=== PATIENT | male | born 1960 | race Caucasian/White ===

== ENCOUNTER 2022-11-21 19:28 | Emergency (ER) | payer MEDICARE, SELFPAY ==
--- NOTE | ~2022-11-21 | CT_ITS ---
EXAMINATION: CT facial bones w con DATE: 11/22/2022 05:12 INDICATION: Dental infection. TECHNIQUE: Computed tomography (CT) of the facial bones and maxillofacial region was performed with 1 00 mL Omnipaque 350 intravenous contrast. Automated exposure control and iterative reconstruction emre hnique were employed. The dose-length product was 579.01 mGy-cm. COMPARISON: None. FINDINGS: There are likely changes of left ocular lens replacement surgery. There is mild mucosal thi ckening in the paranasal sinuses. There is a small left mastoid effusion. There is a carious lesion o f teeth 4. Teeth 14 and 15 are broken with periapical lucencies. There is breech of the buccal cortex of the alveolar process at 14. There are carious lesions of 18. There is left cheek soft tissue swe lling. No drainable abscess. IMPRESSION: 1. Dental disease. 2. Left cheek soft tissue swelling. No drainable abscess. Reviewed, dictated and finalized at location A.
[2022-11-21 19:55] VITALS: BP 158/97; PULSE 100; RESP 18; TEMP 36.4; O2SAT 99
[2022-11-22 03:04] VITALS: BP 164/90; PULSE 109; RESP 16; TEMP 36.8; O2SAT 100
--- NOTE | 2022-11-22 03:53 | ED.DENTAL ---
HPI - Dental/Oral General Chief complaint: Dental/Oral Stated complaint: dental abcess Time Seen by Provider: 11/22/22 03:28 Source: patient Limitations: no limitations History of Present Illness HPI Narrative: Patient presents for dental pain. States 1 year ago he broke a tooth in his left upper molar region and for the past 2-3 months it has been sore in that region intermittently, then 1.5 weeks ago the pain got worse but was still intermittent. Now over the past 5-6 days the pain has been constant. Patient went to an ER in [place] 2-3 days ago and was started on antibiotics with 2 days of clindamycin taken thus far and a dentist appointment scheduled for tomorrow morning. Patient has tried aleve and tylenol for the pain without significant changes. Denies recent injuries, fever, dysphagia, ear pain, eye pain, vision changes, trismus. Admits to a scant amount of overlying facial swelling. Related Data Home Medications Medication Instructions Recorded Confirmed metoprolol tartrate 50 mg tablet 50 mg PO Q12H 03/04/19 11/17/22 nitroglycerin 0.4 mg sublingual 0.4 mg sublingual Q5M PRN 03/04/19 11/17/22 tablet omeprazole 20 mg capsule,delayed 20 mg PO DAILY 05/23/19 11/17/22 release ranolazine 1,000 mg 1,000 mg PO Q12H 05/23/19 11/17/22 tablet,extended release,12 hr (Ranexa) icosapent ethyl 1 gram capsule See Rx Instructions PO DAILY 08/14/19 11/17/22 (Vascepa) insulin aspart U-100 100 unit/mL 50 unit subcut TID 05/18/22 11/17/22 (3 mL) subcutaneous pen (Novolog FlexPen U-100 Insulin aspart) insulin detemir U-100 100 unit/mL 50 unit subcut BID 05/18/22 11/17/22 (3 mL) subcutaneous pen (Levemir FlexTouch U-100 Insulin) Allergies Allergy/AdvReac Type Severity Reaction Status Date / Time cefdinir Allergy Severe Swelling Verified 11/17/22 15:09 Penicillins AdvReac Unknown Hives Verified 11/17/22 15:09 Review of Systems Review of Systems: A 10 system review of systems was completed on the patient and is negative except for what is stated in the HPI. Nursing and ancillary documentation was reviewed. [facility] Past Medical History Medical History Anxiety and depression ASHD (arteriosclerotic heart disease) Nieves's palsy Benign essential hypertension Blurry vision, bilateral Diabetic neuropathy Fatty liver Mixed hyperlipidemia Polyp of colon Type 2 diabetes mellitus with diabetic polyneuropathy, with long-term current use of insulin Family History Family History Father Family history of lymphoma Sibling Family history of coronary artery disease Family history of heart disease in male family member before age 55 Mother Family history of malignant neoplasm of ovary Social History Social History Smoking packs per day: 0.5 Smoking cigarettes per day: 10.0 Years smoked: 45 Smoking pack-years: 22.50 Smoking status: Current some day smoker Tobacco type: cigarettes Second hand tobacco smoke exposure: No Alcohol intake: current Alcohol use details: once in a blue santos a beer Substance use: never Substance use type: does not use Lack of Transportation: No Lack of Food: Never True Current Housing: I Have Housing Concerned About Future Housing: No Difficulty Paying Gas/Electric Bills: No Difficulty Paying for Meds: YES Currently Unemployed: No Education: High School Diploma/GED Difficulty w/ Childcare or Family Care: No Comments At time of signature, I have reviewed and agree with nursing past medical, surgical, social and family history unless otherwise noted. Please see the nursing chart for further information. There is no relevant family history pertinent to the presenting complaint. Exam Narrative: CONST: No acute distress. Well nourished. HENMT: Head is normocephalic and at
[2022-11-22] MEDS: HYDROcodone/acetaminophen (*CRX) 7.5-325 MG TABLET 1 TAB PO (04:05)
[2022-11-22] MEDS: CLINDAMYCIN 450 MG in DEXTROSE 5% IN WATER 50 ML 106 MG IVPB (04:06)
[2022-11-22 04:15] LABS: Basophils Percent Auto 0.4 % (0.2-1.2); Eosinophils Absolute Auto 0.1 K/mm3 (0-0.3); Eosinophils Percent Auto 0.6 % (0-4.4); Hematocrit 52.3 % (42.0-52.0); Hemoglobin 18.3 g/dL (14.0-18.0); Immature Granulocyte Percent A 0.9 % (0-0.5); Lymphocytes Absolute Auto 1.16 K/mm3 (0.9-3.2); Lymphocytes Percent Auto 10.5 % (18.3-44.2); Mean Corpuscular Hemoglobin 29.5 pg (26-34); Mean Corpuscular Volume 84.4 fl (80-100); Mean Platelet Volume 11.7 fl (7.4-10.4); Monocytes Absolute Auto 1.1 K/mm3 (0.1-0.6); Monocytes Percent Auto 9.6 % (2.6-8.5); Neutrophils Absolute Auto 8.7 K/mm3 (1.3-6.7); Platelet Count Result 146 k/mm3 (150-375); Red Cell Distribution Width 13.2 % (11.5-14.5); White Blood Count 11.1 K/mm3 (4.5-10.0)
[2022-11-22 04:28] LABS: Anion Gap 16 mmol/L (8-16); Blood Urea Nitrogen 19 mg/dL (9-20); Calcium 9.3 mg/dL (8.4-10.2); Carbon Dioxide 19 mmol/L (22-30); Chloride 99 mmol/L (98-107); Estimated Glomerular Filt Rate > 60; Glucose 358 mg/dL (65-110); Potassium 4.1 mmol/L (3.4-5.0); Sodium 134 mmol/L (137-145)
[2022-11-22 05:53] VITALS: BP 144/92; PULSE 122; RESP 16; O2SAT 99
[2022-11-22 07:13] VITALS: BP 133/88; PULSE 88; RESP 15; TEMP 37.3; O2SAT 100
== END 2022-11-22 07:15 | disposition home or self-care (01) ==
PROVIDERS: Emergency Provider Student in an Organized Health Care Education/Training Program; PCP Nurse Practitioner Family
DX: K04.7 Periapical abscess without sinus (principal); I25.10 Atherosclerotic heart disease of native coronary artery without angina pectoris; I10 Essential (primary) hypertension; E78.2 Mixed hyperlipidemia; E11.42 Type 2 diabetes mellitus with diabetic polyneuropathy; Z86.010 Personal history of colon polyps; Z79.4 Long term (current) use of insulin; F17.210 Nicotine dependence, cigarettes, uncomplicated; K02.9 Dental caries, unspecified
CPT/HCPCS: 36415; 70487; 80048; 85025; 96365; 99283; 99284; A9270; Q9967

== ENCOUNTER 2024-06-27 00:20 | Day surgery (SDC) | payer MEDICARE, SELFPAY ==
[2024-04-29 15:39] VITALS: BMI 30.7
--- NOTE | 2024-04-29 16:03 | PC.NURSE ---
Spoke with _PATIENT regarding medication PLAVIX. _PATIENT_verbalizes understanding that the last dose is to be taken on _05/01/24_ and the Endoscopist will instruct them when to restart after the procedure.
[2024-06-19 13:23] VITALS: BMI 30.7
--- NOTE | 2024-06-19 13:25 | PC.NURSE ---
Spoke with patient regarding medication Plavix. Patient verbalizes understanding that the last dose is to be taken on 06/22/2024 and the Endoscopist will instruct them when to restart after the procedure.
--- OUTSIDE RECORDS SUMMARY | 2024-06-27 00:23 | XMS_ITS | Clinical Summary ---
Author Organization [facility] Address [address] [place] [address] Care Team Providers Care Environmental Director Name Role Phone Manny Jackson DO Primary Care Provider [phone] Liam Pedraza MD Unavailable Fer Caballero DO Unavailable [phone] Shea Baca MD Unavailable [phone] Dylan Farmer MD Unavailable [phone] Allergies Active Allergy Reactions Criticality Noted Date Comments Penicillins Anaphylaxis High 10/14/2019 Penicillin allergy history form completed, severe risk (occurred in 2019, had to go to urgent care) Medications ALPRAZolam (XANAX) 1 mg tablet Take 1 tablet by mouth 3 (three) times a day as needed. 04/19/19 18 Active VASCEPA 1 gram capsule Take 2 capsules by mouth 2 (two) times a day. 05/10/19 18 Active LEVEMIR FLEXTOUCH 100 unit/mL (3 mL) insulin pen Inject 60 Units under the skin 2 (two) times a day 03/01/20 17 Active metFORMIN (GLUCOPHAGE) 1,000 mg tablet Take 1 tablet by mouth 2 (two) times a day. 05/19/19 18 Active buPROPion XL (WELLBUTRIN XL) 150 mg 24 hr tablet Take 150 mg by mouth daily Active insulin lispro (HumaLOG, ADMELOG) 100 unit/mL injection Inject 55 Units under the skin 3 (three) times a day before meals Adjust with sliding scale Active atorvastatin (LIPITOR) 80 mg tablet Take 80 mg by mouth daily 10/21/19 20 Active escitalopram (LEXAPRO) 20 mg tablet Take 20 mg by mouth daily 10/21/19 20 Active fenofibrate nanocrystallized (TRICOR) 145 mg tablet Take 145 mg by mouth daily 10/06/19 20 Active Accu-Chek Carola Plus test strp strip 10/21/19 20 Active Accu-Chek Softclix Lancets lancets 08/15/19 20 Active omeprazole (PriLOSEC) 20 mg capsule Take 20 mg by mouth daily Active aspirin 81 mg enteric coated tabletIndications:ac [place] myocardial infarction,preventio n of thrombosis Take 81 mg by mouth daily 12/18 hold for now due to bleeding with finger laceration YEISON Peacock NP 12/24 going back on ASA 81mg daily today. YEISON Peacock NP Active cyanocobalamin (Vitamin B-12) 500 mcg tabletIndications:Pr evention of Vitamin B12 Deficiency Take 500 mcg by mouth daily Active pyridoxine (VITAMIN B-6) 100 mg tablet Take 100 mg by mouth daily Active ascorbic acid (ascorbic acid) 500 mg tablet,chewable Take 2,000 mg by mouth daily Active vitamin E (vitamin E) 400 unit capsule Take 400 Units by mouth daily Active zinc 50 mg tablet Take 50 mg by mouth daily Active cholecalciferol (VITAMIN D-3) 400 unit capsule Take 400 Units by mouth daily Active magnesium oxide 500 mg capsule Take 500 mg by mouth daily Active multivitamin capsule Take 1 capsule by mouth daily Active loratadine (CLARITIN) 10 mg tablet Take 10 mg by mouth daily Active metoprolol tartrate (LOPRESSOR) 25 mg immediate release tablet [The details of the medication are not available because there are pending changes by a home health clinician.] 30 tablet 1 12/01/19 20 Active Additional Information Patient taking differently: 25 mgoral 2 times daily,Indications: Atrial Arrhythmia, coronary artery disease, Reported on 12/11/2019 clopidogreL (PLAVIX) 75 mg tablet [The details of the medication are not available because there are pending changes by a home health clinician.] 30 tablet 1 12/02/19 20 Active Additional Information Patient taking differently:75 mg oral Daily, 12/18 hold for now due to bleeding with finger laceration. YEISON Peacock NP12/24 going back on Plavix 75mg daily YEISON Peacock NP, Indications: myocardial infarction prevention, Reported on 12/26/2019 docusate sodium (COLACE) 100 mg capsuleIndications:c onstipation Take 1 capsule (100 mg total) by mouth 2 (two) times a day 12/01/19 20 Active oxyCODONE-acetaminop hen (PERCOCET) 5-325 mg per tabletIndications:Pa in Take 1 tablet by mouth every 4 (four) hours as needed for pain 0 12/01/19 20 Active polyethylene glycol (MIRALAX) 17 gram packetIndications:co nstipation Take 1 packet (17 g total) by mouth daily 12/02/19 20 Active vitamin E (vitamin E) 400 unit capsuleIndications:V itamin E Deficiency Take 400 Units by mouth daily. Indications: deficiency of vitamin E Active Active Problems Problem Noted Date Diagnosed Date Coronary artery disease invo lving [place] heart without angina pectoris 10/14/2019 Overview (10/14/2019): Added automatically from request for surgery [id number] Hypotension 05/29/2017 Assessment & Plan (05/29/2017 3:57 AM CDT): Will hold ranolazine and metoprolol. Continue IV fluids. Will check orthostatics. Syncope 05/29/2017 Assessment & Plan (05/29/2017 3:46 AM CDT): Multifactorial. Likely due to hypoglycemia and hypotension. Patient is currently on tele. EKG shows first-degree AV block. Will continue to monitor. Patient states he is currently back at baseline. Hypoglycemia associated with type 2 diabetes umkund litus 05/29/2017 Assessment & Plan (05/29/2017 3:47 AM CDT): Patient states he has recently been eating last and has lost 8 lb. He still taking the same dose of insulin 55 units b.i.d. of Levemir and 45 units of Humalog t.i.d. meals. Will reduce patient's insulin to 30 units b.i.d. of Levemir and 25 units t.i.d. aspart with meals. Will place patient on a high-dose sliding scale. Will continue to monitor. Mood disorder 05/29/2017 Assessment & Plan (05/29/2017 3:44 AM CDT): Will need to confirm home medications prior to continuing. Patient states he does take sertraline, resolved he and p.r.n. Xanax. Lactic acidosis 05/29/2017 Assessment & Plan (05/29/2017 3:47 AM CDT): Likely secondary to the hypotension. Patient receiving IV fluids. Will repeat level. CAD (coronary artery disease) 05/29/2017 Assessment & Plan (05/29/2017 3:45 AM CDT): Will continue Lipitor. Hold Ranexa and beta-corinne due to hypotension. Renal failure 05/29/2017 Assessment & Plan (05/29/2017 3:49 AM CDT): No previous creatinine. Unknown if it is acute, acute on chronic or chronic. Will avoid nephrotoxins at this time. Continue IV fluids. Will continue to monitor. Surgical History Surgery Date Site/Laterality Comments CHOLECYSTECTOMY CARDIAC STENT PLACEMENT N/A 4 stents TONSILLECTOMY Medical History Medical History Date Comments Myocardial infarction (HCC) Coronary artery disease Hyperlipidemia Hypertension GERD (gastroesophageal reflux disease) Irritable bowel syndrome Urinary tract infection frequent Type 2 diabetes mellitus (HCC) Diabetic neuropathy (HCC) Depression Anxiety History of transfusion infancy Hx MRSA infection Family History Medical History Relation Name Comments Cancer Father Heart failure Father Cancer Mother Heart failure Mother Hypertension Mother Stroke Mother Relation Name Status Comments Father Mother Social History Tobacco Use Types Packs/Day Years Used Date Smoking Tobacco: Former Cigarettes 0.5 40 Smokeless Tobacco: Never Alcohol Use Standard Drinks/Week Comments No 0 (1 standard drink = 0.6 oz pur e alcohol) Sex and Gender Information Value Date Recorded Sex Assigned at Not on file Legal Sex Male 10:06 AM COMMUNITY RELATIONS REPRESENTATIVE Gender Identity Not on file Sexual Orientation Not on file Obstetrics History Last Filed Vital Signs Vital Sign Reading Time Taken Comments Blood Pressure 128/76 04/20/2020 12:29 PM COMMUNITY RELATIONS REPRESENTATIVE Pulse 97 04/20/2020 12:29 PM COMMUNITY RELATIONS REPRESENTATIVE Temperature 36.6 C (97.9 F) 04/20/2020 12:29 PM COMMUNITY RELATIONS REPRESENTATIVE Respiratory Rate 14 04/20/2020 12:29 PM COMMUNITY RELATIONS REPRESENTATIVE Oxygen Saturation 96% 04/20/2020 12:29 PM COMMUNITY RELATIONS REPRESENTATIVE Inhaled Oxygen Concentration - - Weight 103 kg (227 lb) 04/20/2020 12:29 PM COMMUNITY RELATIONS REPRESENTATIVE Height 180.3 cm (5' 11 ) 04/20/2020 12:29 PM COMMUNITY RELATIONS REPRESENTATIVE Body Mass Index 31.66 04/20/2020 12:29 PM COMMUNITY RELATIONS REPRESENTATIVE Plan of Treatment Not on file Insurance [employer] CLAIMS OFFICE [employer] MEDICARE PPO [employer] MEDICARE PPO Advance Directives For more information, please contact: [phone] * Full Code (Latest Code Status on File) Date Activated Date Inactivated Comments 11/26/2019 8:21 PM 12/01/2019 9:58 PM * Full Code Date Activated Date Inactivated Comments 05/29/2017 4:15 AM 05/30/2017 4:04 PM * Full Code Date Activated Date Inactivated Comments 05/28/2017 5:29 PM 05/29/2017 4:15 AM Care Teams Environmental Director Relationship Specialty Start Date End Date Manny Jackson DO PCP - General Internal Medicine 09/26/19 Liam Pedraza MD Surgeon Cardiothoracic Surgery 12/01/19 Fer Caballero DO Consulting Physician Urology 12/01/19 Shea Baca MD Consulting Physician Cardiology 12/01/19 [place] [id number] [address] Consulting Physician Endocrinology Diabetes & Metabolism 12/01/19
--- OUTSIDE RECORDS SUMMARY | 2024-06-27 00:23 | XMS_ITS | Data Portability ---
Author Organization [place] [facility] [employer], Main Office Address [address] [place] [address] Assessment Encounter Date Assessment Date Assessment LastModified by Organization Details LastModified Time 06/06/2023 06/06/2023 This note is dictated and transcribed by [employer]. Manager Contact variances may occur. Despite proofreading, typographical errors may occur. Occasional wrong-word or 'afdbk-b-wnkw' substitutions may have occurred due to the inherent limitations of voice recording. Read the chart carefully and recognize, using context, where substitutions have occurred. Not available 06/11/2023 11:28:12 06/20/2023 06/20/2023 This note is dictated and transcribed by [employer]. Manager Contact variances may occur. Despite proofreading, typographical errors may occur. Occasional wrong-word or 'vtxhx-f-mrdk' substitutions may have occurred due to the inherent limitations of voice recording. Read the chart carefully and recognize, using context, where substitutions have occurred. Not available 06/20/2023 12:03:19 10/04/2023 10/04/2023 This note is dictated and transcribed by [employer]. Manager Contact variances may occur. Despite proofreading, typographical errors may occur. Occasional wrong-word or 'ylirs-j-epbm' substitutions may have occurred due to the inherent limitations of voice recording. Read the chart carefully and recognize, using context, where substitutions have occurred. Not available 10/17/2023 14:00:14 Plan of Treatment Reminders Order Date Submit Date Provider Last Modified By Organization Details Last Modified Time Details Appointments Establish ed Patient 15 2024 03:15P Austin Condon DPM Not available Not available Not available Lab None recorded. Referral None recorded. Procedures None recorded. Surgeries None recorded. Imaging XR, foot, 3 or more view - podiatry read 2023 024 [email or web address] [facility] [address] [place], [address], 05/23/2023 08:05:27 XR, foot 2023 024 [email or web address] [facility], [address] [place], [address], 05/09/2023 17:28:35 Medication Orders None recorded. Patient TargetsNo targets recorded. Patient InstructionsNo instructions recorded. Reason for Referral None Reported. Results Created Date Observation Date Name Description Value Unit Range Abnormal Flag Note LastModifiedBy Organization Detail LastModifiedTime 05/09/19 24 XR, foot No observ ation record ed. [facility] [address] [place], [address], 05/09/2023 17:21:02 Result Notes None recorded. 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 Not Available [facility] 3 07:31:35 Type 2 diabetes mellitus without complicati on 986942748 Active Not Available [facility] 3 07:31:35 Dyslipidem ia 085931436 Active Not Available [facility] 3 07:31:35 Coronary atheroscle rosis 855475962 Active Not Available [facility] 3 07:31:35 Uncontroll ed type 2 diabetes mellitus 360818755 Active Not Available [facility] 3 07:31:35 Coronary arterioscl erosis 61789498 Active Not Available [facility] 3 07:31:35 Ulcer of left foot due to type 2 diabetes mellitus 6221654417428 9109 Active 2022 Jorge Condon DPM [address], [address], [place], [address] , [employer] 3 18:15:17 Peripheral arterial occlusive disease 291345371 Active 2022 Jorge Condon DPM [address], [address], [place], [address] , [employer] [facility] 3 18:15:23 Cellulitis of left lower limb 7817261622661 9109 Active 2022 Jorge Condon DPM [address], [address], [place], [address] , [employer] 3 18:16:18 Diabetes mellitus 01086851 Active 2022 Jorge Condon DPM [address], [address], [place], [address] , [employer] [facility] [employer] 3 11:04:26 Foot callus 935977421 Active 2022 Jorge Condon DPM [address], [address], [place], [address] , [employer] 3 11:05:13 Plantar fasciitis of right foot 2763801584475 9101 Active 2022 Jorge Condon DPM [address], [address], [place], [address] , [employer] [facility] [employer] 3 11:05:18 Congenital pes planus 95070330 Active 2022 Jorge Condon DPM [address], [address], [place], [address] , [employer] 3 11:06:47 Pressure injury of heel 002165618 Active 2023 Jorge Condon DPM [address], [address], [place], [address] , [employer] 4 15:41:56 Peripheral vascular disease 279232069 Active 2023 Jorge Condon DPM [address], [address], [place], [address] , [facility] [employer] [facility] 4 15:42:51 Postoperat verónica visit 407065457 Active 2023 Jorge Condon DPM [address], [place], [address] , [facility] [employer] [facility] 4 15:43:08 History of amputation of right lesser toe 1156460710723 9100 Active 2023 Jorge Condon DPM [address], [place], [address] , [facility] [employer] [facility] 4 16:29:29 Dehiscence of external surgical incision wound 7870602736838 08 Active 2023 Jorge Condon DPM [address], [place], [address] , [facility] [employer] [facility] 4 13:44:48 Pain in right foot 9202620530975 07 Active 2023 Jorge Condon DPM [address], [place], [address] , [facility] [employer] [facility] 4 15:41:13 Notes:Some problems listed i n Document: #[id number] could not be added to this patient's chart. Please review this document and add these problems to the patient's chart manually as needed. Problem Notes None recorded. Procedures Surgical History Date Name Laterality Status Provider Name and Address Organization Details Recorded Time 06/20/2023 Wound Care-Podiat ry completed Jorge Condon DPM [address], [address], [place], [address], [facility] [employer] [facility] 06/20/2023 12:42:51 06/06/2023 Wound Care-Podiat ry completed Ebenezer Perkins RN [facility] Network [employer] [facility] 06/06/2023 14:58:32 05/23/2023 Wound Care-Podiat ry completed Jorge Condon DPM [address], [place], [address], [facility] [employer] [facility] 06/06/2023 15:41:14 05/09/2023 Wound Care-Podiat ry completed Ebenezer Perkins RN [facility] Network [employer] [facility] 05/09/2023 15:28:39 05/02/2023 Wound Care-Podiat ry completed Jorge Condon DPM [address], [address], [place], [address], [facility] [employer] [facility] 05/03/2023 13:43:48 04/25/2023 Wound Care-Podiat ry completed Jorge Condon DPM [address], [place], [address], [facility] [employer] [facility] [facility] [facility] 05/03/2023 14:15:05 01/18/2023 Callus Debridement , One completed Jorge Condon DPM [address], [address], [place], [address], [facility] [employer] [facility] 01/18/2023 11:04:00 09/13/2022 Wound Care-Podiat ry completed Nicci Enamorado RN [facility] Network [employer] [facility] 09/13/2022 16:44:13 08/30/2022 Wound Care-Podiat ry completed Jorge Condon DPM [address], [address], [place], [address], [facility] [employer] [facility] 08/30/2022 18:14:57 Imaging Results Imaging Date Name Status LastModified by Organiz ation Details LastModified Time 05/09/2023 XR, foot completed [facility] [address], [place], [address], 05/09/2023 17:21:02 Procedure Notes None recorded. Medical Equipment None Reported. Allergies Allergen ID Allergen Name Allergen Category Reaction Reaction Severity Criticality Documentation Date Start Date Code Code System Note Provider Name and Address Organization Details Recorded Time 23731 Product containin g penicilli n (product) medicatio n facial swelling moderate Not available 08/30/2022 26478 7518 SNOMED Ebenezer Perkins RN null, [place] - [facility] 3 17:38:56 Medications Name Sig Start Date Stop Date Status Note LastModified by Organization Details LastModified Time cyclobenzap rine 10 mg tablet 06/19 completed Not Available Not Available Not Available atorvastati n 40 mg tablet Take 1 tablet every day by oral route for 30 days. active Not Available Not Available No t Available buspirone 5 mg tablet active Not Available Not Available No t Available silver sulfadiazin e 1 % topical cream APPLY A 1/16 INCH (1.5 MM) THICK LAYER TO ENTIRE WOUND AREA BY TOPICAL ROUTE 2 TIMES PER DAY active Not Available Not Available No t Available atorvastati n 80 mg tablet active Not Available Not Available Not Available rabeprazole 20 mg tablet,iraida yed release TAKE 1 TABLET BY MOUTH DAILY active Not Available Not Available No t Available doxycycline hyclate 100 mg capsule TAKE 1 CAPSULE (100 MG) BY MOUTH 2 TIMES DAILY FOR 8 DAYS. 06/19 completed Not Available Not Available Not Available clindamycin HCl 300 mg capsule TAKE 1 CAPSULE ORAL ROUTE EVERY 6 HOURS FOR 7 DAYS 06/19 completed Not Available Not Available Not Available citalopram 40 mg tablet active Not Available Not Available Not Available ibuprofen 800 mg tablet 06/19 completed Not Available Not Available Not Available alprazolam 1 mg tablet active Not Available Not Available Not Available ofloxacin 0.3 % eye drops USE 1 DROP 3 TIMES PER DAY STARTING 2 DAYS PRIOR TO SURGERY, CONTINUE FOR 1 WEEK AFTER 06/19 completed Not Available Not Available Not Available hydrocodone 5 mg-acetamin ophen 325 mg tablet TAKE 1 TABLET BY MOUTH EVERY 6 HOURS NEEDED 06/19 completed Not Available Not Available Not Available clindamycin HCl 150 mg capsule TAKE 1 CAPSULE ORAL ROUTE EVERY 6 HOURS FOR 7 DAYS 06/19 completed Not Available Not Available Not Available Ninoska Low Dose Aspirin 81 mg tablet,iraida yed release Take 1 tablet every day by oral route. 2015 active Not Available Not Available Not Avai lable clopidogrel 75 mg tablet active Not Available Not Available Not Available tramadol 50 mg tablet TAKE 1 TABLET BY MOUTH EVERY 8 HOURS NEEDED FOR PAIN 06/19 completed Not Available Not Available Not Available acyclovir 800 mg tablet 06/19 completed Not Available Not Available Not Available glimepiride 2 mg tablet 06/19 completed Not Available Not Available Not Available ketorolac 0.5 % eye drops USE 1 DROP 3 TIMES PER DAY STARTING 2 DAYS PRIOR TO SURGERY, CONTINUIN G FOR 1 WEEK AFTER SURGERY 06/19 completed Not Available Not Available Not Available alprazolam 0.5 mg tablet 06/19 completed Not Available Not Available Not Available prednisolon e acetate 1 % eye drops,suspe nsion USE 1 DROP 3 TIMES PER DAY STARTING AFTER SURGERY, CONTINUIN G FOR 3 WEEKS 06/19 completed Not Available Not Available Not Available gemfibrozil 600 mg tablet 06/19 completed Not Available Not Available Not Available metformin 1,000 mg tablet active Not Available Not Available Not Available nitrofurant oin macrocrysta l 100 mg capsule TAKE 1 CAPSULE BY MOUTH EVERY 12 HOURS WITH A MEAL/FOOD X7 DAYS 06/19 completed Not Available Not Available Not Available buspirone 10 mg tablet 06/19 completed Not Available Not Available Not Available gabapentin 300 mg capsule active Not Available Not Available Not Available hydrochloro thiazide 25 mg tablet TAKE 1 TABLET BY MOUTH EVERY DAY active Not Available Not Available No t Available mupirocin 2 % topical ointment APPLY A SMALL AMOUNT TO THE AFFECTED AREA THREE TIMES DAILY 06/19 completed Not Available Not Available Not Available ibuprofen 600 mg tablet TAKE 1 TABLET BY MOUTH EVERY 6 HOURS NEEDED WITH FOOD 06/19 completed Not Available Not Available Not Available methylpredn isolone 4 mg tablets in a dose pack 07/06 completed Not Available Not Available Not Available cefdinir 300 mg capsule TAKE 1 CAPSULE (300 MG) BY MOUTH EVERY 12 HOURS FOR 8 DAYS. 06/19 completed Not Available Not Available Not Available doxycycline hyclate 100 mg tablet TAKE 1 TABLET BY MOUTH TWICE A DAY FOR 10 DAYS WITH FOOD 06/19 completed Not Available Not Available Not Available valsartan 160 mg tablet TAKE 1 TABLET BY MOUTH EVERY DAY active Not Available Not Available No t Available neomycin-po lymyxin-hyd rocort 3.5 mg-10,000 unit/mL-1 % ear drops,susp PLACE 4 DROPS INTO AFFECTED EAR(S) 3 TIMES A DAY 06/19 completed Not Available Not Available Not Available valsartan 160 mg-hydrochl orothiazide 25 mg tablet active Not Available Not Available Not Available bupropion HCl XL 300 mg 24 hr tablet, extended release active Not Available Not Available Not Available bupropion HCl XL 150 mg 24 hr tablet, extended release Take 1 tablet every day by oral route. 06/19 completed Not Available Not Available Not Available metoprolol tartrate 25 mg tablet active Not Available Not Available No t Available nitrofurant oin monohydrate /macrocryst als 100 mg capsule TAKE 1 CAPSULE BY MOUTH EVERY 12 HOURS FOR 7 DAYS WITH A MEAL/FOOD 06/19 completed Not Available Not Available Not Available duloxetine 30 mg capsule,del ayed release active Not Available Not Available Not Available Vesicare 5 mg tablet Take 1 tablet every day by oral route. 06/19 completed Not Available Not Available Not Available Janumet 50 mg-1,000 mg tablet Take 1 tablet twice a day by oral route. 06/19 completed Not Available Not Available Not Available Humalog KwikPen (U-100) Insulin 100 unit/mL subcutaneou s active Not Available Not Available Not Available oxycodone 10 mg tablet TAKE 1 TABLET (10 MG) BY MOUTH EVERY 4 HOURS NEEDED FOR PAIN. MAX DAILY AMOUNT: 60 MG 06/19 completed Not Available Not Available Not Available fenofibrate 54 mg tablet TAKE 1 TABLET BY MOUTH EVERY DAY active Not Available Not Available No t Available Victoza 2-Marky 0.6 mg/0.1 mL (18 mg/3 mL) subcutaneou s pen injector inject 0.6mg qd x 1wk, 1.2mg qd x 1wk and 1.8 mg qd 06/19 completed Not Available Not Available Not Available Vascepa 1 gram capsule Take 2 capsules twice a day by oral route. 2015 active Not Available Not Available Not Avai lable Abilify Maintena 300 mg intramuscul ar suspension, extended release 04/20 completed Not Available Not Available Not Available Levemir FlexTouch U-100 Insulin 100 unit/mL (3 mL) subcutaneou s pen Inject 60 units twice a day by subcutane ous route. 2015 active Not Available Not Available Not Avai lable Bydureon 2 mg/0.65 mL subcutaneou s pen injector Inject 0.65 mL every week by subcutane ous route. 06/28 completed Not Available Not Available Not Available Vitals Date Recorded Body temperature Oxygen saturation Oxygen saturation in Arterial blood by Pulse oximetry Heart rate Systolic blood pressure Diastolic blood pressure Provider Name and Address Organization Details Last Updated DateTime 4 97.6 [degF] 98 % 98 % 100 /min 129 mm[Hg] 82 mm[Hg] Ebenezer Perkins RN [facility] [employer] [facility] 4 14:54:28 Date Recorded Heart rate Body temperature Respiratory rate Oxygen saturation Oxygen saturation in Arterial blood by Pulse oximetry Systolic blood pressure Diastolic blood pressure Provider Name and Address Organization Details Last Updated DateTime 4 108 /min 98.2 [degF] 20 /min 99 % 99 % 155 mm[Hg] 80 mm[Hg] Ebenezer Perkins RN [facility] [employer] [facility] 4 15:12:55 Date Recorded Body temperature Oxygen saturation Oxygen saturation in Arterial blood by Pulse oximetry Respiratory rate Heart rate Systolic blood pressure Diastolic blood pressure Provider Name and Address Organization Details Last Updated DateTime 4 97.7 [degF] 100 % 100 % 18 /min 82 /min 147 mm[Hg] 75 mm[Hg] Ebenezer Perkins RN [facility] [employer] [facility] 4 14:58:55 Date Recorded Body temperature Respiratory rate Oxygen saturation Oxygen saturation in Arterial blood by Pulse oximetry Heart rate Systolic blood pressure Diastolic blood pressure Provider Name and Address Organization Details Last Updated DateTime 4 98.5 [degF] 18 /min 98 % 98 % 107 /min 150 mm[Hg] 80 mm[Hg] Nicci Enamorado RN [facility] [employer] [facility] 4 12:27:26 Date Recorded Body height Body mass index (BMI) Body weight Heart rate Respiratory rate Body temperature Oxygen saturation Oxygen saturation in Arterial blood by Pulse oximetry Systolic blood pressure Diastolic blood pressure Provider Name and Address Organization Details Last Updated DateTime 4 180.34 cm 29.6 kg/m2 85673.5 8 g 83 /min 16 /min 97.7 [degF] 97 % 97 % 120 mm[Hg] 76 mm[Hg] Yesy Solano [place] [employer] 17:13:37 Social History Question Answer Notes LastModified by Organizat ion Details LastModified Time Tobacco Smoking Status Current Every Day Smoker Jorge Condon DPM [address], [facility] [address], [place], [address], [employer] 08/30/2022 18:44:30 What Is Your Level Of Alcohol Consumption? None Information not available 08/30/2022 What Is Your Level Of Caffeine Consumption? 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 1979 [email or web address] Information not available 08/30/2022 How Much Tobacco Do You Smoke? 0.5 PPD Information not available 08/30/2022 Do You Use Any Illicit Or Recreational Drugs? No Information not available 08/30/2022 Has Tobacco Cessation Counseling Been Provided? No Information not available 08/30/2022 Do You Or Have You Ever Used Any Other Forms Of Tobacco Or Nicotine? Yes Information not available 08/30/2022 Sex: Unknown Functional Status None recorded. Mental Status None recorded. Family History Relationship Description Onset Age of this Age Resolved Age Notes LastModified by Organization Details LastModified Time Brother Diabetes mellitus [email or web address] Not available 08/30 18:42:23 Mother Hypertensive disorder [email or web address] Not available 08/30 18:42:53 Father Family history of malignant neoplasm [email or web address] Not available 2023 17:03:00 Medical History Condition Response USE OF BLOOD THINNERS Y DIABETES, TYPE Y HEART DISEASE/HEART PROBLEMS Y HEARTBURN / REFLUX Y HYPERTENSION Y HIGH CHOLESTEROL / HYPERLIPIDEMIA Y OBESITY Y ANXIETY DISORDER Y CORONARY ARTERY DISEASE (CAD) Y DEPRESSION (INCLUDING POST ) Y BOWEL PROBLEMS Y BACK / NECK PROBLEMS Y Past Encounters Encounter ID Performer Location Encounter Start Date Encounter Closed Date Diagnosis/Indication Diagnosis SNOMED-CT Code Diagnosis ICD10 Code Diagnosis Note [id number] Jorge Condon DPM [facility] [address] [place] [address] 08/30/2022 16:58:46 08/30/2022 18:11:39 Ulcer of left foot due to type 2 diabetes mellitus 7556058178 9692850 E11.621 continue local wound careOffloa ding at all timesRecom mend Hibiclens washing daily secondary to history of MRSARx mupirocinc ultures performed of wound bedChange dressings 3 times dailyFollo w-up in 2 weeks Peripheral arterial occlusive disease 068089086 I73.9 obtain previous testingcon tinue with vascular recommenda tions Cellulitis of left lower limb 6310057879 6440511 L03.116 continue clindamyci n are resolving [id number] Jorge Condon DPM [facility] [address] [place] [address] 09/13/2022 16:40:17 09/13/2022 17:08:47 Ulcer of left foot due to type 2 diabetes mellitus 9992227516 3323168 E11.621 [employer] diabetic shoes and insertsFol low up in my office in 3 months for diabetic foot evaluation [id number] [facility] [place] [address], [address] [place] [address] 01/18/2023 10:22:51 01/18/2023 11:08:38 Diabetes mellitus 81650478 E11.51 E11.42 Rx diabetic shoes and insertscon tinue diabetic control per PCP Foot callus 818204976 L8 4 left foot sub 1st metatarsal head- pre ulcerative debrided without incidentre commend offloading Rx custom diabetic inserts and shoe gear, today Plantar fa sciitis of right foot 9302117677 7450894 M72.2 recommend supportive shoe gear until diabetic shoesstret emelia and icing instructio ns reviewedfo llow-up 1 month possible physical therapy Congenital pes planus 23 910593 Q66.52 Q66.51 recommend diabetic shoe gear and custom inserts [id number] Jorge Condon DPM [facility] [address] [place] [address] 04/25/2023 15:14:52 05/09/2023 09:10:33 History of amputation of right lesser toe 0893993799 5369093 Z89.421 5th toe right foot Pressure i njury of heel 127281643 L89.609 right heeldebrid ed wound todayofflo ading at all timeseleva te heel with 1-2 pillows for offloading Postoperative visit 1836 05986 Z48.89 s/p 3.5 weeks right fifth toe amputation Peripheral vascular disease 981046758 I73.9 cont with vasc recommenda tionbypass successful right leg in mid mar 2023 Dehiscence of external surgical incision wound 9017818911 01627 T81.31XA right 5th amp area- sutures removeddeb rided todayofflo adingwound care dailyfollo w up in 1 weeksteris trip applied [id number] Jorge Condon DPM [facility] [address] [place] [address] 05/02/2023 16:25:43 05/08/2023 12:27:06 History of amputation of right lesser toe 2319975910 7141401 Z89.421 5th toe right foot Pressure i njury of heel 657349416 L89.609 right heeloffloa ding at all timeseleva te heel with 1-2 pillows for offloading Peripheral vascular disease 211024580 I73.9 cont with vasc recommenda tionbypass successful right leg in Mar 2023 Postoperative visit 1836 80181 Z48.89 s/p 3.5 weeks right fifth toe amputation Dehiscence of external surgical incision wound 1809371634 97826 T81.31XD right 5th amp areadebrid ed todayofflo adingwound care dailyfollo w up in 1 weeksteris trip applied [id number] Jorge Condon DPM [facility] [address] [place] [address] 05/09/2023 14:49:01 05/09/2023 17:28:35 Dehiscence of external surgical incision wound 9235996780 51509 T81.31XD right 5th amp areaoffloa dingwound care dailyfollo w up in 1 week Pressure i njury of heel 234867377 L89.609 right heeloffloa ding at all timeseleva te heel with 1-2 pillows for offloading History of amputation of right lesser toe 5098864270 8653435 Z89.421 5th toe right foot Peripheral vascular disease 523951892 I73.9 cont with vasc recommenda tionbypass successful right leg in mid mar 2023 Postoperative visit 1836 76416 Z48.89 s/p 4.5 weeks right fifth toe amputation [id number] Jorge Condon DPM [facility] [address] [place] [address] 05/23/2023 15:05:24 06/06/2023 10:50:44 Dehiscence of external surgical incision wound 7507696291 42229 T81.31XD right 5th amp areaoffloa dingwound care dailyfollo w up in 1 week Pressure i njury of heel 457443561 L89.609 right heeloffloa ding at all timeseleva te heel with 1-2 pillows for offloading Postoperative visit 1836 81801 Z48.89 s/p 4.5 weeks right fifth toe amputation [id number] Jorge Condon DPM [facility] [address] [place] [address] 06/06/2023 14:49:04 06/12/2023 11:42:50 Dehiscence of external surgical incision wound 4201988326 30979 T81.31XD right 5th amp areaoffloa dingwound care dailyfollo w up in 2 weeks Pressure i njury of heel 994536784 L89.609 right heeloffloa ding at all timesConti nue daily wound care until healedelev ate heel with 1-2 pillows for offloading follow-up in 2 weeks Postoperative visit 1836 67758 Z48.89 s/p right fifth toe amputation [id number] Jorge Condon DPM [facility] [address] [place] [address] 06/20/2023 11:58:53 06/20/2023 17:28:54 Dehiscence of external surgical incision wound 1720680581 42757 T81.31XD right 5th amp healedcont inue supportive shoe gear and offloading to prevent open wounds Pressure i njury of heel [id number] L89.609 as abovefollo w-up 2 months Postoperative visit [id number] Z48.89 s/p right fifth toe amputation [id number] Jorge Condon DPM [facility] [place] [address] [place] [address], [address] [place] [address] 10/04/2023 17:01:47 10/17/2023 16:31:29 Diabetes mellitus [id number] E11.51 E11.42 Rx diabetic shoes and insertscon tinue diabetic control per PCP Foot callus [id number] L8 4 left foot sub 1st metatarsal head- pre ulcerative debrided without incidentre commend offloading Rx custom diabetic inserts and shoe gear Health Concerns Section Related Observation LastModified by Organization Detai ls LastModified Time None Recorded Concern Status LastModified by Organization Details LastModified Time None Recorded Advance Directives Directive None Recorded Payers Encounter Date Sequence Insurance Name Policy Number Policy Mayorga Covered Member ID Mayorga Member ID Guarantor Name 05/09/2023 1 [facility] (MEDICARE REPLACEMENT/A DVANTAGE - PPO) [id number] Carlos L Jennifer [id number] Carlos L Jennifer 05/23/2023 1 [facility] (MEDICARE REPLACEMENT/A DVANTAGE - PPO) [id number] Carlos L Jennifer [id number] Carlos L Jennifer 06/06/2023 1 [facility] (MEDICARE REPLACEMENT/A DVANTAGE - PPO) [id number] Carlos L Luther [id number] Carlos L Jennifer 06/20/2023 1 [facility] (MEDICARE REPLACEMENT/A DVANTAGE - PPO) [id number] Carlos L Luther [id number] Carlos L Luther 10/04/2023 1 [facility] (MEDICARE REPLACEMENT/A DVANTAGE - PPO) [id number] Carlos L Luther [id number] Carlos L Luther Notes Date Note Type Note Provider Name and Address Organization Details Recorded Time 05/09/2023 text/html Patient is a 62-year-old male diabetic who returns for follow up on amputation and wound heel wound. Patient continues to do well. Has a slowly healing wounds with no acute signs of infection. Patient denies any intermittent claudication and states his legs still feel good after the bypass surgery. Patient denies any other complaints. Jorge Condon DPM [address] [facility], [facility] [address], [place], [address], Assignment Editor 05/09/2023 17:21:36 05/23/2023 text/html Patient is a 62-year-old male diabetic who returns for follow up on right lower extremity Fifth imputation site which is healing as well as a posterior heel wound. Patient continues to slowly do well has a healthy wound bed and appearance with mild slough to both areas. Patient denies any fever, chills, cage, or vomiting. Patient states he has been having some mild discomfort to the heel. Patient was educated again on effective offloading to prevent pressure and wounds that may worsen to the heel. Jorge Condon DPM [address], [address], [place], [address], Assignment Editor 06/06/2023 15:42:21 06/06/2023 text/html . 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 Patient is almost completely healed continues to do extremely well has no new signs of infection.Patient also has a heel wound which is also slowly healing with a healthy wound base. Patient states he is continuing to offload the area to reduce pressure and prevent healing. Patient denies any pain to the area. Patient denies any other complaints. Jorge Condon DPM [address], [address], [place], [address], Assignment Editor 06/11/2023 11:28:54 06/20/2023 text/html . Patient is a 62-year-old male who returns for a wound to the amputation area which is healed as well as the posterior heel. Patient denies any new wounds or infection. Jorge Condon DPM [address], [address], [place], [address], Assignment Editor 06/20/2023 12:43:34 10/04/2023 text/html . Patient is a 63-year-old male who returns the office for follow-up on wound and callus. Patient denies any new wounds. Patient denies any signs of infection. Patient states he does not have any more pain to the 5th metatarsal area with offloading. Patient denies any other complaints. Jorge Condon, CODIE [address] [address], [place], [address], [facility] 10/17/2023 14:01:53
--- OUTSIDE RECORDS SUMMARY | 2024-06-27 00:23 | XMS_ITS | Encounter Summary ---
Author Organization [facility] Address [address] [place] [address] Care Team Providers Care Non Destructive Testing Supervisor Name Role Phone Eloy Keller MD Primary Care Provider [phone] Reason for Visit * Reason Onset Date Comments Right heel ulcer and eschar 04/03/2023 Spok yosi w/ Wilian @ Dr. Arzola office Encounter Details Date Type Department Care Team (Late st Contact Info) Description 04/03/2023 Telephone [facility] Admitting [address] [place] [address] [place] [address] [facility] [address] [place] [address] Right heel ulcer and eschar (Spoke w/ Wilian @ Dr. Arzola office) Social History Tobacco Use Types Packs/Day Years Used Date Smoking Tobacco: Former Cigarettes Smokeless Tobacco: Never Alcohol Use Standard Drinks/Week Comments Yes 0 (1 standard drink = 0.6 oz pur e alcohol) once in a blue santos Feeling Safe Answer Date Recorded Are you in a relationship wi th someone who hurts you emotionally and/or physically? No 04/05/2023 Food Insecurity Answer Date Recorded Social/Environmental Concerns No concerns Transportation Needs Answer Date Record ed Social/Environmental Concerns No concerns Housing Stability Answer Date Recorded Social/Environmental Concerns No concerns Utility Needs Answer Date Recorded Social/Environmental Concerns No concerns Sex and Gender Information Value Date Recorded Sex Assigned at Not on file Legal Sex Male 10:54 AM BIRTH ATTENDANT Gender Identity Not on file Sexual Orientation Not on file documented as of this encounter Plan of Treatment Upcoming Encounters Date Type Department Care Team (Late st Contact Info) Description 01/08/2025 8:15 AM CDT Appointment [facility] Heart and Vascular Testing [facility] [address] [facility] [address] [place] [address] Yoli Norman, [facility] [address] [facility] [address] [place] [address] 01/08/2025 9:15 AM CDT Appointment [facility] [address] [facility] [address] [place] [address] [facility] [address] [facility] [address] [place] [address] 01/08/2025 10:00 AM CDT Office Visit [facility] Heart and Vascular Surgery [address] [facility] [address] [address] [facility] [address] [place] [address] Yoli Norman, [facility] [address] [facility] [address] [place] [address] documented as of this encounter Visit Diagnoses Not on filedocumented in this encounter Additional Health Concerns Assessment Noted Time PHQ-9 Depression Total Score: 6 04/02/19 24 2:10 PM BIRTH ATTENDANT documented as of this encounter Care Teams Non Destructive Testing Supervisor Relationship Specialty Start Date End Date Eloy Keller MD [address] [place] [address] PCP - General Family Practice 02/14/23 documented as of this encounter
--- OUTSIDE RECORDS SUMMARY | 2024-06-27 00:23 | XMS_ITS | Clinical Summary ---
Author Organization [facility] Address [address] [address] Phone Care Team Providers Care Records Management Assistant Name Role Phone Manny Jackson Primary Care Provider [phone] Social History Tobacco Use Types Packs/Day Years Used Date Smoking Tobacco: Never Assessed Sex and Gender Information Value Date Recorded Sex Assigned at Not on file Legal Sex Male 7:22 PM CDT Gender Identity Not on file Sexual Orientation Not on file Plan of Treatment Health Maintenance Due Date Last Done Comments Hepatitis C Virus (HCV) Screening 1960 TdaP Immunization 1960 Cologuard 2010 Immunochemical Fecal Occult Blood 2010 Pneumococcal Immunization (5 0+ years) (1 of 1 - PCV) 2010 Zoster Immunization (1 of 2) 2010 PSA Discussion 10/09/2015 Influenza Immunization (#1) 2023 SARS-COV-2 Immunization ( - season) 2023 Colonoscopy 01/09/2024 01/08/2019 Colorectal Cancer Screening 01/09/2024 Respiratory Syncytial Virus (RSV) Immunization (Adult) (1 - 1-dose 75+ series) 10/09/2035 01/08/2019 Hepatitis B Immunization Aged Out No longer eligible based on patient's age to complete this topic Meningococcal Immunization (ACWY) Aged Out No longer eligible based on patient's age to complete this topic Pneumococcal Immunization Combined Aged Out No longer eligible based on patient's age to complete this topic Rotavirus Immunization Aged Out No lo nger eligible based on patient's age to complete this topic Procedures Procedure Name Priority Date/Time Associated Diagnosis Comments COLONOSCOPY Routine 01/08/2019 from Last 3 Months or Most Recently Relevant to Health Maintenance Results * COLONOSCOPY (01/08/2019) Andreas Jenkins DO PROCEDURE/MINOR SURGICAL ORDERA BLES Final Result from Last 3 Months or Most Recently Relevant to Health Maintenance Insurance MEDICARE C HUMANA Care Teams Records Management Assistant Relationship Specialty Start Date End Date Manny Jackson DO [address] [facility] [address] [place] [address] PCP - General Internal Medicine 01/14/19
--- OUTSIDE RECORDS SUMMARY | 2024-06-27 00:23 | XMS_ITS | Clinical Summary ---
Author Organization [place] [address] [facility] Address [address] [place] [address] Care Team Providers Care Mechanical Test Engineer Name Role Phone Eloy Keller MD Primary Care Provider [phone] Allergies Active Allergy Reactions Criticality Noted Date Comments Penicillins Anaphylaxis High 10/14/2019 Penicillin allergy history form completed, severe risk (occurred in 2019, had to go to urgent care) Tolerating cefepime March 2023 Medications valsartan-hydro CHLOROthiazide (DIOVAN HCT) 160-25 mg tablet Take 1 Tablet by mouth daily. Active metFORMIN (GLUCOPHAGE) 1,000 mg tablet Take 1,000 mg by mouth 2 times daily with meals. Active clopidogreL (PLAVIX) 75 mg Tablet Take 75 mg by mouth. Active buPROPion HCL (WELLBUTRIN SR) 150 mg Sustained Release 12 hour tablet Take 150 mg by mouth 2 times daily. Active metoprolol tartrate (LOPRESSOR) 50 mg tablet Take 50 mg by mouth 2 times daily. Active atorvastatin (LIPITOR) 80 mg tablet Take 80 mg by mouth daily. Active ALPRAZolam (XANAX) 1 mg tablet Take 1 mg by mouth nightly as needed for Anxiety. Active icosapent ethyL (Vascepa) 1 gram Capsule Take by mouth. Ac tive insulin aspart (NovoLOG) 100 unit/mL injection Inject by subcutaneous injection. 50 Units fast -- 3 times a day Slow asking 45 units -- BID Active insulin lispro (HumaLOG) 100 unit/mL vial Inject 50 Units by subcutaneous injection 3 times daily with meals. Active Lactobacillus acidoph-L.bulga r (LACTINEX,DENNISE NEX) 100 million cell Granules in Packet Take 1 Packet by mouth 3 times daily with meals. 4 Active oxyCODONE (ROXICODONE) 10 mg tabletIndicatio ns:Gangrene of toe of right foot (CMS/HCC),PAD (peripheral artery disease) Take 1 Tablet (10 mg) by mouth every 4 hours as needed for Pain. Max Daily Amount: 60 mg 20 Tablet Active aspirin (ECOTRIN EC) 81 mg Tablet, Delayed Release (E.C.) Take 81 mg by mouth daily. Active Active Problems Problem Noted Date Diagnosed Date Traumatic open wound of lower leg, right, initia l encounter 01/02/2024 Type 2 diabetes mellitus with hyperglycemia 03/19 PAD (peripheral artery disease) 04/02/2023 Gangrene of toe of right foot 04/02/2023 UTI (urinary tract infection) 04/02/2023 Benign hypertension 04/02/2023 Hyperlipidemia 04/02/2023 Encounters Date Type Department Care Team Description 06/04/2024 External Device Data STL ABSTRACTION Provider, Abstract 06/04/2024 External Device Data STL ABSTRACTION Provider, Abstract 05/24/2024 External Device Data STL ABSTRACTION Provider, Abstract 05/23/2024 External Device Data STL ABSTRACTION Provider, Abstract 05/21/2024 External Device Data STL ABSTRACTION Provider, Abstract 04/22/2024 External Device Data STL ABSTRACTION Provider, Abstract 04/15/2024 External Device Data STL ABSTRACTION Provider, Abstract 04/09/2024 External Device Data STL ABSTRACTION Provider, Abstract 04/09/2024 External Device Data STL ABSTRACTION Provider, Abstract from Last 3 Months Family History Medical History Relation Name Comments Coronary Artery Disease Brother Diabetes Brother Heart Disease Brother Acute lymphoblastic leukemia Father Diabetes Father Lymphoma Father Ovarian Cancer Father Heart Disease Mother Coronary Artery Disease Sister Relation Name Status Comments Brother Father Mother Sister Social History Tobacco Use Types Packs/Day Years Used Date Smoking Tobacco: Every Day Cigarettes Last attempted to quit: 03/2022 Smokeless Tobacco: Never Alcohol Use Standard Drinks/Week [...] on file Legal 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:54 AM MILL TURNER Gender Identity Not on file Sexual Orientation Not on file Last Filed Vital Signs Vital Sign Reading Time Taken Comments Blood Pressure 160/94 01/02/2024 9:30 AM CDT Pulse 99 01/02/2024 9:30 AM CDT Temperature 36.9 C (98.4 F) 01/02/2024 9:23 AM CDT Respiratory Rate 18 04/11/2023 3:55 PM MILL TURNER Oxygen Saturation 98% 01/02/2024 9:23 AM CDT Inhaled Oxygen Concentration - - Weight 92.1 kg (203 lb) 05/07/2023 10:27 AM MILL TURNER Height 180.3 cm (5' 11 ) 01/02/2024 9:23 AM CDT Body Mass Index 28.31 05/07/2023 10:27 AM MILL TURNER Plan of Treatment Upcoming Encounters Date Type Department Care Team (Late st Contact Info) Description 01/08/2025 8:15 AM CDT Appointment [facility] Heart and Vascular Testing [address] [address] [facility] [address] [place] [address] Yoli Norman FNP [address] [phone] 01/08/2025 9:15 AM CDT Appointment [facility] Heart and Vascular Testing [address] [address] [facility] [address] [place] [address] Yoli Norman FNP [address] [phone] 01/08/2025 10:00 AM CDT Office Visit [facility] Heart and Vascular Surgery [address] [facility] [address] [address] [address] [facility] [address] [place] [address] KwameYoli aleman, SUPERVISOR LEAD BURNING [address] [address] [facility] [address] [place] [address] Health Maintenance Due Date Last Done Comments PNEUMOCOCCAL VACCINE 0-49 YEARS (1 of 2 - PCV) 967 DIABETES ANNUAL FOOT EXAM 1978 DIABETES ANNUAL RETINAL EXAM 1978 DIABETES MICROALBUMIN ANNUAL SCREEN 1978 LDL CHOLESTEROL ANNUAL 1978 DTAP/TDAP/TD VACCINES (1 - Tdap) 10/09/1979 FIT-DNA Q 3 years 2005 FIT/FOBT Q 1 year 2005 Flex Sig/CT Colonography Q 5 years 2005 ZOSTER VACCINE (1 of 2) 2010 RSV VACCINE (60+ or ) (1 - Risk 60-74 years 1-dose series) 2020 DIABETES HBA1C Q 6 MONTHS 10/01/2023 04/02/2023 INFLUENZA VACCINE (#1) 2023 COLORECTAL SCREENING 01/08/2029 01/08/2019 Colorectal Cancer Screening 01/08/2029 Abdominal Aortic Aneurysm (AAA) Screening Completed 05/29/2017 Medical Devices Implanted Type Area Rolling Down Machine Operator Device Identifier Shelf Expiration Date Model / Serial / Lot Graft Vasc Propaten [id number] - [id number] Implanted:Qty: 1 on 04/05/2023 by [facility] Graft Right: Leg [employer] 02/19/2026 [id number] / [id number] / Description:Requisition: [id number] -[id number] Explanted Type Area Rolling Down Machine Operator Device Identifier Shelf Expiration Date Model / Serial / Lot Hemostat Surg Snow 2x4in 2081 - [id number] Explanted:Qty : 1 on 04/05/2023 by Eran [facility] Hemostatic Right: Leg [employer] 04/18/[id number] / / [id number] Procedures Procedure Name Priority Date/Time Associated Diagnosis Comments HEMOGLOBIN A1C Routine 04/02/2023 3:47 PM MILL TURNER from Last 3 Months or Most Recently Relevant to Health Maintenance Results * (ABNORMAL) HEMOGLOBIN A1C (04/02/2023 3:47 PM MILL TURNER) HEMOGLOBIN A1C 8.4(H) <=5.6 % 04/02/2023 4:47 PM MILL TURNER [facility] EST. AVG GLUCOSE, A1C 194 mg/dL 04/02/2023 4:47 PM MILL TURNER [facility] Blood Venipuncture / Unknown 04/02/2023 3:47 PM MILL TURNER 04/02/2023 4:26 PM MILL TURNER Narrative [facility] - 04/02/2023 4:47 PM MILL TURNER HGB A1C INTERPRETATION NORMAL: <5.7% PRE-DIABETES: 5.7 - 6.4% DIABETES: 6.5% OR GREATER Josette OLMEDO CHEMISTRY ORDERABLES Final Result [facility] CLIA# [id number] [address] [place] [address] from Last 3 Months or Most Recently Relevant to Health Maintenance Insurance [facility] [id number] RX [employer] RX Member Subscriber Plan / Payer (Ef fective 2023-Present) Name:Carlos Rodriguez Relation to Subscriber:Not on file Name:Carlos Rodriguez Date of :1960 Payer ID:Not on file Group ID:[id number] Type:RX Medicare Part D Address: [facility] [facility], [employer] Commercial Advance Directives For more information, please contact: [phone] * Full Code (Latest Code Status on File) Date Activated Date Inactivated Comments 04/05/2023 8:52 PM 04/11/2023 9:29 PM * Full Code Date Activated Date Inactivated Comments 04/02/2023 2:20 PM 04/05/2023 8:52 PM Care Teams Mechanical Test Engineer Relationship Specialty Start Date End Date Eloy Keller MD [address] [place] [address] PCP - General Family Practice 02/14/23
--- OUTSIDE RECORDS SUMMARY | 2024-06-27 00:23 | XMS_ITS | Continuity of Care Document ---
Author Organization [facility] Address [address] [place] [address] Phone Care Team Providers Care Portrait Photographer Name Role Phone Snell OD, Andreas Unavailable Unavailable Procedures Procedure Date Office/outpatient Visit, [facility] Advance Directives Directive Yes / No Effective Date File Name No Information Encounters Encounter Description Practice Location Reason(s) For Visit Diagnoses Date Provider Providers Copied on Encounter Office/outpat ient Visit, [facility], [address] [place] [address] [address], [place], [place], [address], tel:[phone] [facility] No Information 6-201 0 Snell OD Andreas. [address] [facility] , [address], [place], [address], [place]. tel:[phone] Referring Provider: Agus Oshea MD , [address], [place], [address]. tel:[phone] Family History Family Member Type Diagnosis Age At Onset No Information Payers Payer name Insurance type Covered libertarian ID Authoriza tion(s) No Information Social History Type Description Quantity Date Captured Comments Sex Male Smoking Status No Information Chief Complaint And Reason For Visit No Information Reason For Referral Reason For Referral No Information History Of Present Illness Encounter Date Complaint History Of Prese nt Illness No Information Functional Status Date Functional Assessmen t No Information Instructions Date Instruction Additional Infor mation No Information Assessments Type Assessment Date No Information Patient Care Teams Name Effective Dates (start - stop) Status Members No Information
--- OUTSIDE RECORDS SUMMARY | 2024-06-27 00:23 | XMS_ITS | Referral Summary ---
Author Organization [facility] Address [address] [place] [address] Care Team Providers Care Hoop Machine Operator Name Role Phone Manny Jackson DO Primary Care Provider [phone] Liam Pedraza MD Unavailable [phone] Fer Caballero DO Unavailable [phone] Shea Baca MD Unavailable [phone] Dylan Farmer MD Unavailable [phone] Allergies Active Allergy Reactions Criticality Noted [...] Active aspirin 81 mg enteric coated tabletIndications:ac [place] myocardial infarction,preventio n of thrombosis Take 81 [...] Diagnosed Date Coronary artery disease invo lving [place] heart without angina pectoris 10/14/2019 Overview (10/14/2019): Added automatically from request for surgery [id number] Hypotension 05/29/2017 Assessment & Plan (05/29/2017 3:57 [...] baseline. Hypoglycemia associated with type 2 diabetes mukund litus 05/29/2017 Assessment & Plan (05/29/2017 3:47 [...] Continue IV fluids. Will continue to monitor. Social History Tobacco Use Types Packs/Day Years Used Date Smoking Tobacco: Former Cigarettes 0.5 40 Smokeless Tobacco: Never Alcohol Use Standard Drinks/Week Comments No 0 (1 standard drink = 0.6 oz pur e alcohol) Sex and Gender Information Value Date Recorded Sex Assigned at Not on file Legal Sex Male 10:06 AM LOCKS INSPECTOR Gender Identity Not on file Sexual Orientation Not on file Last Filed Vital Signs Vital Sign Reading Time Taken Comments Blood Pressure 128/76 04/20/2020 12:29 PM LOCKS INSPECTOR Pulse 97 04/20/2020 12:29 PM LOCKS INSPECTOR Temperature 36.6 C (97.9 F) 04/20/2020 12:29 PM LOCKS INSPECTOR Respiratory Rate 14 04/20/2020 12:29 PM LOCKS INSPECTOR Oxygen Saturation 96% 04/20/2020 12:29 PM LOCKS INSPECTOR Inhaled Oxygen Concentration - - Weight 103 kg (227 lb) 04/20/2020 12:29 PM LOCKS INSPECTOR Height 180.3 cm (5' 11 ) 04/20/2020 12:29 PM LOCKS INSPECTOR Body Mass Index 31.66 04/20/2020 12:29 PM LOCKS INSPECTOR Plan of Treatment Not on file Insurance HUMANA CLAIMS OFFICE HUMANA CHOICE MEDICARE PPO HUMANA CHOICE MEDICARE PPO Advance Directives For more information, please contact: [phone] * Full Code (Latest Code Status on File) Date Activated Date Inactivated Comments 11/26/2019 8:21 PM 12/01/2019 9:58 PM * Full Code Date Activated Date Inactivated Comments 05/29/2017 4:15 AM 05/30/2017 4:04 PM * Full Code Date Activated Date Inactivated Comments 05/28/2017 5:29 PM 05/29/2017 4:15 AM Care Teams Hoop Machine Operator Relationship Specialty Start Date End Date Manny Jackson DO PCP - General Internal Medicine 09/26/19 Liam Pedraza MD Surgeon Cardiothoracic Surgery 12/01/19 Fer Caballero DO Consulting Physician Urology 12/01/19 Shea Baca MD Consulting Physician Cardiology 12/01/19 [place] [address] [address] Consulting Physician Endocrinology Diabetes & Metabolism 12/01/19
--- OUTSIDE RECORDS SUMMARY | 2024-06-27 00:23 | XMS_ITS | CONTINUITY OF CARE DOCUMENT ---
Author Name helio, helio Address Unknown Organization [facility] Address [address] [place] [address] Phone [phone] Care Team Providers Care Yard Supervisor Cotton Gin Name Role Phone Keven MENESES, Shea Unavailable ANILA MENESES, BROCK Unavailable [phone] ANILA MENESES, BROCK Unavailable [phone] PROBLEMS Condition Status Date Provider Notes Hx of pancreatitis active Jamie Kyte Dizziness active Shea Baca MD CAD-08/30 OCCLUDED RCA s/p CA BG LAWRENCE -LAD, SVG-OM1-OM2, rad- PDA 11/2019 active Shea Baca MD CHEST PAIN-09/27 NUC EF 52 completed - Jamie smith Dyslipidemia active Shea Baca MD HTN ESSENTIAL-08/29 ECHO EF 65 completed - Igor n Emily DIABETES MELLITUS active Shea Baca MD GERD active Shea Baca MD ANXIETY DISORDER GENERALIZED active Tonia Baca MD CHEST PAIN-08/29 NUC INF WALL ISCHEMIA EF 56 completed - Shea Baca MD SHORTNESS OF BREATH active Shea Guerrero Tobacco abuse active Shea Baca MD Sinus tachycardia - Persistent active Jamie Diaz Sinus tachycardia completed - Shea Baca MD Vitamin D deficiency active Shea Baca MD HTN active Jamie Kyte Leg pain active Shea Baca MD Foot pain active Shea Baca MD Femoral tibial bypass active Shea Baca MD ENCOUNTERS Date Type Provider Location Encounter Diag nosis - In-person encounter Office Visit Shea Baca MD [facility] - In-person encounter Office Visit Shea Baca MD [facility] Femoral tibial bypass - In-person encounter Office Visit Gabe Dalton MD [facility] - In-person encounter Office Visit Shea Baca MD [facility] - In-person encounter Office Visit Gabe Dalton MD [facility] - In-person encounter Office Visit Shea Baca MD [facility] - In-person encounter Office Visit Shea Baca MD [facility] Leg painFoot pain - In-person encounter Office Visit Shea Baca MD [facility] CAD-/ OCCLUDED RCA s/p CABG LAWRENCE -LAD, SVG-OM1-OM2, rad- PDA 11/2019 - In-person encounter Office Visit Shea Baca MD [facility] - In-person encounter Office Visit Shea Baca MD [facility] HTN ESSENTIAL-08/29 ECHO EF 65Sinus tachycardia - PersistentHTN - In-person encounter Office Visit Shea Baca MD [facility] CHEST PAIN-08/29 NUC INF WALL ISCHEMIA EF 56 - In-person encounter Office Visit Shea Baca MD [facility] - In-person encounter Office Visit Shea Baca MD [facility] Vitamin D deficiency - In-person encounter Office Visit Shea Baca MD [facility] - In-person encounter Office Visit Shea Baca MD [facility] CAD-6/14 OCCLUDED RCA s/p CABG LAWRENCE -LAD, SVG-OM1-OM2, rad- PDA 11/2019Sinus tachycardia - In-person encounter Office Visit Shea Baca MD [facility] Dyslipidemia - In-person encounter Office Visit Shea Baca MD [facility] - In-person encounter Office Visit Shea Baca MD [facility] - In-person encounter Office Visit Shea Baca MD [facility] Tobacco abuseSinus tachycardia - Persistent - In-person encounter Office Visit Shea Baca MD [facility] - In-person encounter Office Visit Shea Baca MD [facility] Dyslipidemia - In-person encounter Office Visit Shea Baca MD [facility] - In-person encounter Office Visit Shea Baca MD [facility] - In-person encounter Office Visit Shea Baca MD [facility] - In-person encounter Office Visit Shea Baca MD [facility] - In-person encounter Office Visit Shea Baca MD [facility] CAD-6/14 OCCLUDED RCA s/p CABG LAWRENCE -LAD, SVG-OM1-OM2, rad- PDA 11/2019 - In-person encounter Office Visit Shea Baca MD [facility] SHORTNESS OF BREATH - In-person encounter Office Visit Shea Baca MD [facility] CHEST PAIN-08/29 NUC INF WALL ISCHEMIA EF 56 - In-person encounter Office Visit Shea Baca MD [facility] - In-person encounter Office Visit Shea Baca MD [facility] CAD-08/30 OCCLUDED RCA s/p CABG LAWRENCE -LAD, SVG-OM1-OM2, rad- PDA 11/2019DyslipidemiaHTN ESSENTIAL-08/29 ECHO EF 65DIABETES MELLITUSGERDANXIETY DISORDER GENERALIZED - In-person encounter Office Visit Shea Baca MD [facility] CHEST PAIN-09/27 NUC EF 52 VITAL SIGNS Date Observation Value Provider Body Mass Index (Ratio) 34.16 kg/m2 Yonathan Sawnn blood pressure, diastolic 80 mm[Hg] nkLog blood pressure, systolic 146 mm[Hg] Jany og blood pressure, diastolic 80 mm[Hg] Am reji Ventimiglia [facility] blood pressure, systolic 146 mm[Hg] [place] nda Ventimiglia [facility] oxygen saturation, oximetry 97 % Marcy Ventimiglia [facility] respiratory rate E&M 16 /min Marcy Ventimiglia [facility] pulse rate 88 /min Marcy Ventimig [facility] weight E&M 228 [lb_av] Marcy Ventimig [facility] height E&M 68.5 [in_i] Marcy Ventimig [facility] Body Mass Index (Ratio) 30.11 kg/m2 Jase Baca MD blood pressure, diastolic 95 mm[Hg] Li nkLogic blood pressure, systolic 150 mm[Hg] Jany kLogic blood pressure, cuff size regular Ja rret [place]2023/01/31 blood pressure, diastolic 95 mm[Hg] rret blood pressure, systolic 150 mm[Hg] [facility] ret pulse rate 96 /min Tadeo oxygen saturation, oximetry 98 % Tadeo respiratory rate E&M 12 /min Tadeo weight E&M 201 [lb_av] Tadeo y height E&M 68.5 [in_i] Tadeo Body Mass Index (Ratio) 31.91 kg/m2 Janessa Dalton MD blood pressure, cuff size regular [facility] blood pressure, diastolic 90 mm[Hg] [facility] blood pressure, systolic 148 mm[Hg] [facility] ret pulse rate 98 /min Tadeo oxygen saturation, oximetry 98 % Tadeo respiratory rate E&M 16 /min Tadeo weight E&M 213 [lb_av] Tadeo height E&M 68.5 [in_i] Tadeo Body Mass Index (Ratio) 31.01 kg/m2 Janessa Dalton MD blood pressure, cuff size regular [facility] blood pressure, diastolic 88 mm[Hg] rret blood pressure, systolic 143 mm[Hg] [facility] ret pulse rate 98 /min Tadeo oxygen saturation, oximetry 98 % Tadeo respiratory rate E&M 12 /min Tadeo weight E&M 207 [lb_av] Tadeo y height E&M 68.5 [in_i] Tadeo y Body Mass Index (Ratio) 31.76 kg/m2 Jase Baca MD blood pressure, diastolic 89 mm[Hg] Li nkLogic blood pressure, systolic 160 mm[Hg] Jany kLogic blood pressure, cuff size regular Ja rr blood pressure, diastolic 89 mm[Hg] Ja rret blood pressure, systolic 160 mm[Hg] Jar ret pulse rate 98 /min Tadeo oxygen saturation, oximetry 97 % respiratory rate E&M 12 /min weight E&M 212 [lb_av] Tadeo height E&M 68.5 [in_i] Tadeo y Body Mass Index (Ratio) 30.71 kg/m2 Reno Borges pulse rate 100 /min Shea Baca MD respiratory rate E&M 16 /min Tonia Baca MD blood pressure, diastolic 92 mm[Hg] French Baca MD blood pressure, systolic 151 mm[Hg] Irma Baca MD weight E&M 205 [lb_av] Shea Baca MD blood pressure, cuff size large [facility] [place] height E&M 68.5 [in_i] Enma mirza Body Mass Index (Ratio) 34.91 kg/m2 Igor Diaz blood pressure, diastolic 95 mm[Hg] Thomas Chawla blood pressure, systolic 158 mm[Hg] Martita Chawla pulse rate 105 /min Yesy bond oxygen saturation, oximetry 95 % Yesy Chawla respiratory rate E&M 16 /min Yesy Chawla blood pressure, cuff size regular Cy nttejindera Chawla weight E&M 233 [lb_av] Yesy Campbel l height E&M 68.5 [in_i] Yesy Campbel l Body Mass Index (Ratio) 37.46 kg/m2 Igor n Kyte blood pressure, diastolic 99 mm[Hg] Ch astity Brenton blood pressure, systolic 156 mm[Hg] An stity Brenton oxygen saturation, oximetry 97 % Chastity Brenton pulse rate 97 /min Chastity Brenton respiratory rate E&M 16 /min Chastit y Brenton weight E&M 250 [lb_av] Chastity Brenton height E&M 68.5 [in_i] Chastity Brenton Body Mass Index (Ratio) 37.61 kg/m2 Igor n Deluis blood pressure, brar tolic, second observation 82 mm[Hg] Shea Baca MD blood pressure, syst olic, second observation 150 mm[Hg] Shea Baca MD blood pressure, diastolic 99 mm[Hg] Cy romulo Chawla blood pressure, systolic 162 mm[Hg] Martita arnoldo Chawla oxygen saturation, oximetry 96 % Yesy Chawla respiratory rate E&M 16 /min Yesy Chawla pulse rate 116 /min Yesy Edwardbel l weight E&M 251 [lb_av] Yesy Campbel l height E&M 68.5 [in_i] Yesy Campbel l blood pressure, cuff size regular Cy ntyudith Chawla blood pressure, diastolic 84 mm[Hg] Ka jany Shakeelluis blood pressure, systolic 130 mm[Hg] Heriberto in te Body Mass Index (Ratio) 39.10 kg/m2 Jase Baca MD blood pressure, diastolic 86 mm[Hg] Da leta Amilcar blood pressure, systolic 150 mm[Hg] Dac ia Amilcar oxygen saturation, oximetry 95 % Rowan Amilcar respiratory rate E&M 18 /min Rowan V oss pulse rate 104 /min Rowan Amilcar weight E&M 261 [lb_av] Rowan Amilcar height E&M 68.5 [in_i] Rowan Amilcar Body Mass Index (Ratio) 38.35 kg/m2 Jase Baca MD blood pressure, cuff size large Ke rri Gruenenfeldjuanita blood pressure, diastolic 90 mm[Hg] Ke rri Gruenenfelder blood pressure, systolic 142 mm[Hg] Luz Maria ri Gaby oxygen saturation, oximetry 98 % Josefa Sbnflinda respiratory rate E&M 20 /min Josefa Dwayne davis pulse rate 107 /min Josefa Brendan lder weight E&M 256 [lb_av] Josefa Grmasonnenfe lder height E&M 68.5 [in_i] Josefa Grmasonnejohanna lder Body Mass Index (Ratio) 38.05 kg/m2 Jase Baca MD blood pressure, diastolic 90 mm[Hg] Da leta Amilcar blood pressure, systolic 158 mm[Hg] Dac ia Amilcar oxygen saturation, oximetry 97 % Rowan Amilcar respiratory rate E&M 18 /min Rowan V oss pulse rate 116 /min Rowan Amilcar weight E&M 254 [lb_av] Rowan Amilcar height E&M 68.5 [in_i] Rowan Amilcar Body Mass Index (Ratio) 37.76 kg/m2 Jase Baca MD blood pressure, cuff size large Ke rri Gruenejeffelder blood pressure, diastolic 90 mm[Hg] Ke rri Gruenenfelder blood pressure, systolic 142 mm[Hg] Ker ri Gruenenfelder oxygen saturation, oximetry 97 % Josefa Gruenenfelder respiratory rate E&M 18 /min Josefa G ruenenfelder pulse rate 115 /min Josefa Gruenenfe lder weight E&M 252 [lb_av] Josefa Gruenenfe lder height E&M 68.5 [in_i] Josefa Gruenenfe lder Body Mass Index (Ratio) 37.01 kg/m2 Jase Baca MD blood pressure, cuff size large Ke rri Gruenenfelder blood pressure, diastolic 80 mm[Hg] Ke rri Gruenenfelder blood pressure, systolic 132 mm[Hg] Ker ri Gruenenfelder oxygen saturation, oximetry 96 % Josefa Zitanejeffjulianneer respiratory rate E&M 16 /min Josefa G zulmaenenfelder pulse rate 101 /min Josefa Gruenenfe lder weight E&M 247 [lb_av] Josefa Gruenenfe lder height E&M 68.5 [in_i] Josefa Gruenenfe lder Body Mass Index (Ratio) 35.81 kg/m2 Jase Baca MD blood pressure, resting Yes Kylie Baeza blood pressure, diastolic 93 mm[Hg] Juancarlos Baeza blood pressure, systolic 144 mm[Hg] Angela Baeza oxygen saturation, oximetry 98 % Thomas Baeza respiratory rate E&M 18 /min Estrella Baeza pulse rate 128 /min Thomas haskins weight E&M 239 [lb_av] Thomas haskins height E&M 68.5 [in_i] Thomas haskins Body Mass Index (Ratio) 35.12 kg/m2 Jase Baca MD blood pressure, diastolic 75 mm[Hg] Juancarlos Baeza blood pressure, systolic 134 mm[Hg] Angela Baeza oxygen saturation, oximetry 98 % Thomas Baeza respiratory rate E&M 18 /min Estrella Baeza pulse rate 114 /min Thomas haskins weight E&M 234.4 [lb_av] Thomas kebede height E&M 68.5 [in_i] Thomas haskins blood pressure, diastolic 89 mm[Hg] Pa alex Dominguez blood pressure, systolic 153 mm[Hg] Josy soto Dominguez pulse rate 120 /min Afua Dominguez oxygen saturation, oximetry 98 % Afua Dominguez Body Mass Index (Ratio) 39.70 kg/m2 [facility] respiratory rate E&M 16 /min Afua Dominguez weight E&M 265 [lb_av] Afua Dominguez Body Mass Index (Ratio) 39.40 kg/m2 Bets y Sheffield blood pressure, diastolic 84 mm[Hg] Be tsy Sheffield blood pressure, systolic 136 mm[Hg] Bet sy Sheffield pulse rate 97 /min Bhavna Sheffield oxygen saturation, oximetry 96 % Bhavna Sheffield respiratory rate E&M 16 /min Bhavna M marshal weight E&M 263 [lb_av] Bhavna Sheffield Body Mass Index (Ratio) 39.40 kg/m2 [facility] blood pressure, diastolic 104 mm[Hg] Me johnson Dominguez blood pressure, systolic 172 mm[Hg] Josy soto Dominguez pulse rate 112 /min Afua Dominguez oxygen saturation, oximetry 97 % Afua Dominguez respiratory rate E&M 16 /min Afua Dominguez weight E&M 263 [lb_av] Afua Dominguez Body Mass Index (Ratio) 39.10 kg/m2 Anea anamika [facility] blood pressure, diastolic, left arm 84 mm [Hg] Aneatris Brown blood pressure, systolic, left arm 144 mm [Hg] Aneatris Brown blood pressure, diastolic, right arm 85 m m[Hg] Aneatris Brown blood pressure, systolic, right arm 150 m m[Hg] Aneatris Brown blood pressure, diastolic 84 mm[Hg] An mauriceris [facility] blood pressure, systolic 144 mm[Hg] Ane atris [facility] pulse rate 95 /min Aneatris [facility] oxygen saturation, oximetry 98 % Aneatris [facility] respiratory rate E&M 20 /min Aneatri s [facility] weight E&M 261 [lb_av] Aneatris [facility] Body Mass Index (Ratio) 35.51 kg/m2 Anea anamika [facility] blood pressure, diastolic, left arm 95 mm [Hg] Aneatris Brown blood pressure, systolic, left arm 131 mm [Hg] Aneatris Brown blood pressure, diastolic, right arm 93 m m[Hg] Aneatris Brown blood pressure, systolic, right arm 148 m m[Hg] Aneatris Brown blood pressure, diastolic 95 mm[Hg] An eatris Brown blood pressure, systolic 131 mm[Hg] Ane atris Brown pulse rate 117 /min Aneatris Brown oxygen saturation, oximetry 98 % Aneatris Brown respiratory rate E&M 20 /min Aneatri tony Krishna weight E&M 237 [lb_av] Aneatris Tomi Body Mass Index (Ratio) 36.26 kg/m2 Dot Nunez blood pressure, diastolic 91 mm[Hg] Jarocho Nunez blood pressure, systolic 140 mm[Hg] Billy Nunez pulse rate 110 /min Mercedes Nunez oxygen saturation, oximetry 98 % Mercedes Nunez respiratory rate E&M 17 /min Mercedes Nunez weight E&M 242 [lb_av] Mercedes Nunez Body Mass Index (Ratio) 37.59 kg/m2 Lucia holland Dominguez blood pressure, diastolic 86 mm[Hg] Me johnson Dominguez blood pressure, systolic 154 mm[Hg] Josy soto Dominguez pulse rate 102 /min Afua Dominguez oxygen saturation, oximetry 97 % Afua Dominguez respiratory rate E&M 16 /min Afua Dominguez weight E&M 250 [lb_av] Afua Dominguez Body Mass Index (Ratio) 36.24 kg/m2 Ha Vargas RN blood pressure, diastolic 90 mm[Hg] He ather Blunt blood pressure, systolic 128 mm[Hg] Hea ther Blunt pulse rate 110 /min Rochelle Blunt oxygen saturation, oximetry 97 % Rochelle Blunt respiratory rate E&M 20 /min Rochelle Blunt weight E&M 241 [lb_av] Rochelle Blunt Body Mass Index (Ratio) 35.79 kg/m2 Milligan i Gaby blood pressure, diastolic 88 mm[Hg] Ke rri Gaby blood pressure, systolic 124 mm[Hg] Ker ri Gaby pulse rate 103 /min Josefa Brendan marinelli oxygen saturation, oximetry 95 % Josefa Gaby respiratory rate E&M 17 /min Josefa Rice [place]ul[place]anta weight E&M 238 [lb_av] Josefa Ahumadadunia marinelli Body Mass Index (Ratio) 36.41 kg/m2 David Gan blood pressure, diastolic, left arm 60 mm [Hg] [facility], systolic, left arm 101 mm [Hg] [facility] blood pressure, diastolic, right arm 60 m m[Hg] [facility] 110 m m[Hg] [facility], [facility] 60 mm[Hg] [place] Gan blood pressure, systolic 101 mm[Hg] [facility] pulse rate 102 /min [facility] oxygen saturation, oximetry 97 % [facility] respiratory rate E&M 16 /min [facility] weight E&M 242.13 [lb_av] Cameronan Cochr an blood pressure, diastolic, left arm 92 mm [Hg] Tri Stueber blood pressure, systolic, left arm 130 mm [Hg] Tri Stueber blood pressure, diastolic, right arm 90 m m[Hg] Tri Stueber blood pressure, systolic, right arm 142 m m[Hg] Tri Stueber Body Mass Index (Ratio) 36.54 kg/m2 Fani a Stueber blood pressure, diastolic 92 mm[Hg] Ta anaya Stueber blood pressure, systolic 130 mm[Hg] Neumann ya Stueber pulse rate 104 /min Tri Stueber oxygen saturation, oximetry 96 % Tri Stueber respiratory rate E&M 22 /min Tri pan weight E&M 243 [lb_av] Tri Stueber height E&M 68.5 [in_i] Tri Gómez Body Mass Index (Ratio) 37.11 kg/m2 Jhnoy jacinto [facility] blood pressure, diastolic, left arm 86 mm [Hg] [facility], left arm 122 mm [Hg] [facility], diastolic, right arm 84 m m[Hg] [facility], systolic, right arm 118 m m[Hg] [facility], diastolic 84 mm[Hg] Aziza seph [place] blood pressure, systolic 118 mm[Hg] Oscar eph [place] pulse rate 90 /min [facility], oximetry 97 % [facility] rate E&M 16 /min [facility] weight E&M 254 [lb_av] [facility] height E&M 69.5 [in_i] [place] blood pressure, diastolic, left arm 62 mm [Hg] [place] blood pressure, systolic, left arm 108 mm [Hg] [place] blood pressure, diastolic, right arm 58 m m[Hg] [place] blood pressure, systolic, right arm 102 m m[Hg] [place] blood pressure, diastolic 58 mm[Hg] Aziza seph [place] blood pressure, systolic 102 mm[Hg] Oscar eph [place] pulse rate 108 /min [place] oxygen saturation, oximetry 97 % [facility] rate E&M 20 /min [place] weight E&M 252.2 [lb_av] [facility] blood pressure, diastolic, left arm 96 mm [Hg] [place] blood pressure, systolic, left arm 135 mm [Hg] [facility], diastolic, right arm 93 m m[Hg] [facility] blood pressure, systolic, right arm 131 m m[Hg] [facility], diastolic 93 mm[Hg] Aziza seph [place] blood pressure, systolic 131 mm[Hg] Oscar eph [place] pulse rate 116 /min [facility], oximetry 95 % [facility] rate E&M 20 /min [facility] weight E&M 245 [lb_av] [facility] ALLERGIES Allergy Name Onset Date Reaction Criticality Status PENICILLIN G PROCAINE Low Criticalit y active RESULTS Date Observation Value Provider Reference Range Interpretation Location lipoprotein, beta, serum, point, quantitative, calculated 101 mg/dL [facility] 0-99 High HDL cholesterol, serum 37 mg/dL [facility] >39 Low triglyceride, serum, random 337 mg/dL [facility] 0-149 High cholesterol, serum 195 mg/dL [facility] [id number]/ 28 LDL cholesterol, serum 43 mg/dL [facility] cholesterol, serum 138 mg/dL [facility] alanine aminotransferase (SGPT), serum 29 1/L [facility] aspartate aminotransferase (SGOT), serum 20 1/L [facility] creatinine, serum 1.15 mg/dL [facility] potassium, serum 3.9 mmol/L [facility] sodium, serum 137 mmol/L [facility] triglyceride, serum, fasting 332 mg/dL [facility] HDL cholesterol, serum 29 mg/dL [facility] lipoprotein, beta, serum, point, quantitative, calculated 43 mg/dL [facility] cholesterol, serum 138 mg/dL [facility] alanine aminotransferase (SGPT), serum 29 1/L [facility] aspartate aminotransferase (SGOT), serum 20 1/L [facility] creatinine, serum 1.15 mg/dL [facility] potassium, serum 3.9 mmol/L [facility] sodium, serum 137 mmol/L [facility] lipoprotein, beta, serum, point, quantitative, calculated DNR [facility] triglyceride, serum, fasting 1418 mg/dL [facility] HDL cholesterol, serum 28 mg/dL [facility] cholesterol, serum 197 mg/dL [facility] platelet count 122 10*3/mm3 [facility] hematocrit, blood 44.2 % [facility] creatinine, serum 1.01 mg/dL [facility] potassium, serum 4.2 mmol/L [facility] sodium, serum 136 mmol/L [facility] platelet count 149 10*3/mm3 [facility] hematocrit, blood 43.4 % [facility] triglyceride, serum, fasting 2163 mg/dL [facility] cholesterol, serum 289 mg/dL [facility] international normalized ratio (INR) 0.89 [facility] thyroid stimulating hormone, serum 0.95 u[IU]/mL [facility] alanine aminotransferase (SGPT), serum 19 1/L [facility] aspartate aminotransferase (SGOT), serum 21 1/L [facility] creatinine, serum 0.6 mg/dL [facility] potassium, serum 4.1 mmol/L [facility] sodium, serum 132 mmol/L [facility] August prothrombin time (patient) 10.7 s Kylie Ontiveros RN international normalized ratio (INR) 1.0 Kylie Ontiveros RN blood glucose, fasting 17 mg/dL Kylie Ontiveros RN creatinine, serum 1.10 mg/dL Kylie Ontiveros RN urea nitrogen, blood 13.0 mg/dL Kylie Ontiveros RN carbon dioxide, serum, total 22 mmol/L [facility] chloride, serum 104 mmol/L [facility] potassium, serum 4.1 mmol/L [facility] sodium, serum 139 mmol/L [facility] platelet count 126 10*3/uL [facility] hematocrit, blood 45.9 % [facility] hemoglobin, blood 16.9 g/dL [facility] erythrocyte (RBC) count 5.41 10*6/mm3 [facility] leukocyte count, blood 8.3 10*3/mm3 [facility] HISTORY OF MEDICATION USE Medication Status Instructions Dates Provider Indications Com ments clopidogrel 75 mg tablet active TAKE 1 TABLET BY MOUTH ONCE a DAY Nic Ramírez Xarelto unspecified unspecified completed Take 1 tablet by mouth twice a day - Marcy Ventimiglia [employer] PROVIDER doxycycline hyclate 100 mg capsule completed - Marcy Ventimiglia [employer] LEVEL PROVIDER cefdinir 300 mg capsule completed - Marcy Ventimiglia [employer] LEVEL PROVIDER tramadol 50 mg tablet completed Take 1 tablet by mouth every eight hours as needed for pain - [facility] metoprolol tartrate 25 mg tablet active TAKE 1 AND 1/2 TABLETS BY MOUTH TWICE DAILY [facility] clopidogrel 75 mg tablet completed TAKE 1 TABLET BY MOUTH ONCE DAILY - Nic Ramírez atorvastatin 80 mg tablet active Take 1 tablet by mouth once a day [facility] valsartan-hydrochl orothiazide 160-25 mg tablet active Take 1 tablet by mouth once a day Shea Baca MD clopidogrel 75 mg tablet completed Take 1 tablet by mouth once a day - Jeanie Altamirano metoprolol tartrate 50 mg tablet completed Take 1 tablet by mouth twice a day - Josefa Griffin metoprolol tartrate 25 mg tablet completed TAKE 1 AND 1/2 TABLETS TWICE DAILY - Samara Crouch clopidogrel 75 mg tablet completed TAKE 1 TABLET EVERY DAY - Samara Crouch QC ZINC 50 MG TABS completed 1 tablet once a day - [facility] vitamin E (dl, acetate) 180 mg (400 unit) capsule completed 1 capsule once a day - [facility] Vitamin B-6 100 mg tablet completed 1 tablet once a day - [facility] MAGNESIUM 500 MG TABS completed 1 tablet once a day - [facility] Multiple Vitamins tablet completed 1 tablet once a day - Shea Baca MD loratadine 10 mg tablet completed 1 tablet once a day - Enma Stevens fenofibrate nanocrystallized 145 mg tablet completed 1 tablet once a day - Enma Stevens Vitamin B-12 500 mcg tablet completed 1 tablet once a day - [facility] vitamin E (dl, acetate) 180 mg (400 unit) capsule completed once a day - [facility] Plavix 75 mg tablet completed 1 tablet once a day - Shea Baca MD SILVADENE 1 % EXTERNAL CREAM completed apply a thin layer to the affected area twice daily - Kylie Ontiveros RN fenofibrate micronized 134 mg capsule completed 1 capsule once a day - Enma Stevens MINIPRESS 5 MG ORAL CAPSULE completed one tab six times a day - Kylie Ontiveros RN NITRO-DUR 0.4 MG/HR TRANSDERMAL PATCH 24 HOUR completed ONCE DAILY - Kylie Ontiveros RN aspirin 81 mg tablet,delayed release (DR/EC) active 1 tablet by mouth once a day Josefa Griffin VITAMIN C CAPSULE active 500 mg once a day Shea Baca MD bupropion HCl 150 mg tablet sustained-release 12 hr active Take 1 once a day Josefa Griffin MIRTAZAPINE 30 MG ORAL TABLET completed take one pill a day - Kylie Ontiveros RN Lexapro 20 mg tablet completed Take 1 once a day - Enma Stevens omeprazole 20 mg tablet,delayed release (DR/EC) completed once a day - Shea Baca MD GEMFIBROZIL 600 MG ORAL TABLET completed take one pill twice a day - Shea Baca MD [facility] NICOTINE 14 MG/24HR TRANSDERMAL PATCH 24 HOUR completed One patch once daily. DO NOT SMOKE WHILE TAKING THIS PATCH - Yesy Chawla metoprolol tartrate 25 mg tablet completed 1.5 tablet twice a day - Shea Baca MD VITAMIN D CAPSULE completed take one pill a week for the first month then once a month - Josefa Griffin BEXAGLIFLOZIN 20 MG/ PLACEBO completed - Enma Stevens VICTOZA 18 MG/3ML SUBCUTANEOUS SOLUTION PEN-INJECTOR completed 1.8ml a day - Shea Baca MD nitroglycerin 0.4 mg tablet, subling[address] active Place 1 tablet under tongue once a day Shea Baca MD BUSPIRONE HCL 5 MG ORAL TABLET completed twice daily - Thomas Baeza ABILIFY 10 MG ORAL TABLET completed 1 tab twice daily - Thomas Baeza FISH OIL CAPSULE completed four times daily - Josefa Griffin MAGNESIUM 250 MG ORAL TABLET completed once daily - Thomas Baeza SM VITAMIN B-12 TABLET completed once daily - Josefa Griffin EQL POTASSIUM GLUCONATE 595 (99 K) MG ORAL TABLET completed once daily - Josefa Griffin GEMFIBROZIL 600 MG ORAL TABLET completed twice daily - Thomas Baeza BELVIQ 10 MG ORAL TABLET completed twice daily - Shea Baca MD VESICARE 5 MG ORAL TABLET completed once daily - Thomas Baeza METOPROLOL SUCCINATE ER 100 MG ORAL TABLET EXTENDED RELEASE 24 HOUR completed ONE TAB DAILY - Thomas Baeza EFFIENT 10 MG ORAL TABLET completed One tablet daily - Thomas Baeza Vascepa 1 gram capsule active 2 capsule twice a day Shea Baca MD total of 4 grams daily LEVEMIR SOLUTION completed as directed - Enma Stevens Humalog KwikPen Insulin 100 unit/mL insulin pen completed as directed - Enma Stevens ANTIPYRINE-BENZOCA INE SOLUTION completed 3 times daily 4 drops - Josefa Griffin AMOXICILLIN 875 MG ORAL TABLET completed twice daily - Josefa Griffin BUDEPRION SR 150 MG ORAL TABLET EXTENDED RELEASE 12 HOUR completed Daily - Thomas Baeza RANEXA 1000 MG ORAL TABLET EXTENDED RELEASE 12 HOUR completed ONE TAB. TWICE DAILY for chronic angina - Kylie Ontiveros RN ISOSORBIDE MONONITRATE ER 30 MG ORAL TABLET EXTENDED RELEASE 24 HOUR completed 1 tablet by mouth every morning - Tri Gómez METOPROLOL TARTRATE 25 MG ORAL TABLET completed 1/2 tablet by mouth twice daily - Omar Orta KEFLEX 500 MG ORAL CAPSULE completed 1 capsule by mouth 4 times daily - Tri Gómez NITROLINGUAL 0.4 MG/SPRAY TRANSLINGUAL SOLUTION completed ONE SPRAY PRN 4.9GM. BOTTLE - Km Garcia RN ASPIRIN 81 MG ORAL TABLET DELAYED RELEASE completed Take one (1) tablet by mouth daily - Thomas Baeza metformin 1,000 mg tablet active 1 tablet twice a day Shea Baca MD GEMFIBROZIL 600 MG ORAL TABLET completed 1 tablet by mouth twice daily - Shea Baca MD GLIMEPIRIDE 2 MG ORAL TABLET completed 1 tablet by mouth twice daily - Thomas Baeza DIOVAN 160 MG ORAL TABLET completed 1 tablet by mouth daily - Kylie Ontiveros RN Lipitor 80 mg tablet completed 1 tablet once a day - Enma Stevens PLAVIX 75 MG ORAL TABLET completed 1 tablet by mouth daily - Ha Vargas RN CITALOPRAM HYDROBROMIDE 40 MG ORAL TABLET completed 1 tablet by mouth daily - Thomas Baeza alprazolam 1 mg tablet active 1 tablet three times a day as needed Shea Baca MD ACIPHEX 20 MG ORAL TABLET DELAYED RELEASE completed 1 tablet by mouth daily - Thomas Baeza SOCIAL HISTORY Date Observation Value Provider personal history of marijuana use no [facility] drug use no Marcy Ventimig kev [facility] cigarette sm [facility] smoking/tobacco cess ation, patient education and counseling yes [facility] smoking, year quit 3 weeks Marcy Tawny ntimiglia [facility] number of years as a smoker 10 years or m [facility] date [facility] [place] smoking history, tot al pack/year 41 Marcy Ventimiglia [facility] smoking history, tot al pack/day 1/2 [facility] cigarette use yes Marcy Ventimi glia [facility] smoking status Current every da y smoker Marcy Ventimiglia [facility] drug use none Shea Baca MD alcohol use no Shea Baca MD passive cigarette sm lon exposure no Shea Baca MD smoking/tobacco cess ation, patient education and counseling yes Shea Baca MD smoking, year quit 3 weeks Shea Baca MD number of years as a smoker 10 years or m ore Shea Baca MD smoking, date started 1975 Portillo Baca MD smoking history, tot al pack/year 41 Shea Baca MD smoking history, tot al pack/day 1/2 Shea Baca MD cigarette use yes Shea Baca MD smoking status Current every da y smoker Shea Baca MD social history reviewed E&M revi ewed - no changes required Gabe Dalton MD social history E&M Marital Statu s: Single L jagdish alone E thnicity: Smoking History: P atient currently smokes every day. P atient has been counseled to quit. Gabe Dalton MD smoking/tobacco cess ation, patient education and counseling yes Gabe Dalton MD smoking status Current every da y smoker Gabe Dalton MD social history reviewed E&M revi ewed - no changes required Shea Baca MD social history E&M Marital Statu s: Single L jagdish alone E thnicity: S moking History: P atient currently smokes every day. P atient has been counseled to quit. Shea Baca MD social history E&M Marital Statu s: Single L jagdish alone E thnicity: Smoking History: P atient currently smokes every day. P atient has been counseled to quit. Gabe Dalton MD smoking/tobacco cess ation, patient education and counseling yes Gabe Dalton MD smoking status Current every da y smoker Gabe Dalton MD social history reviewed E&M revi ewed - no changes required Gabe Dalton MD social history reviewed E&M revi ewed - no changes required Shea Baca MD social history E&M Marital Statu s: Single L jagdish alone E thnicity: S moking History: P atient currently smokes every day. P atient has been counseled to quit. Shea Baca MD smoking/tobacco cess ation, patient education and counseling yes Shea Baca MD social history E&M Marital Statu s: Single L jagdish alone E thnicity: Smoking History: P atient currently smokes every day. P atient has been counseled to quit. Shea Baca MD social history reviewed E&M revi ewed - no changes required Shea Baca MD smoking history, tot al pack/day 1/2 Enma Stevens cigarette use yes Enma lennon smoking status Current every da y smoker Enma Stevens social history E&M Marital Statu s: Single L jagdish alone E thnicity: Smoking History: P atient currently smokes every day. P atient has been counseled to quit. Jamie Diaz social history reviewed E&M revi ewed - no changes required Jamie Diaz seatbelt usage 100 % Yesy billy physical exercise, frequency, days per week yes Yesy Chawla caffeine use, averag e drinks per day yes Yesy Chawla passive cigarette sm lon exposure no Yesy Chawla smoking/tobacco cess ation, patient education and counseling yes Yesy Chawla smoking, year quit 3 weeks Yesy sommers number of years as a smoker 10 years or m ore Yesy Chawla smoking, date started 1975 Maddie Chawla smoking history, tot al pack/year 41 Yesy Chawla smoking history, tot al pack/day 0.5 Yesy Chawla cigarette use yes Yesy garcia smoking status Current every da y smoker Yesy Chawla social history E&M Marital Statu s: Single L jagdish alone E thnicity: Smoking History: P atient currently smokes every day. P atient has been counseled to quit. Shea Baca MD social history reviewed E&M revi ewed - no changes required Shea Baca MD seatbelt usage 100 % [facility] [employer] e physical exercise, frequency, days per week yes [facility] caffeine use, averag e drinks per day yes [facility] passive cigarette sm lon exposure no [facility] smoking/tobacco cess ation, patient education and counseling yes [facility] smoking, [facility], date started 1975 Ankelly monroy Brenton smoking history, tot al pack/year 41 [facility] smoking history, tot al pack/day 0.5 [facility] cigarette use yes [facility] smoking status Current [facility] da y [facility] E&M Marital Statu s: Single L jagdish alone E thnicity: Smoking History: P atient currently smokes every day. P atient has been counseled to quit. Shea Baca MD social history reviewed E&M revi ewed - no changes required Shea Baca MD seatbelt usage 100 % Yesy Genesis billy physical exercise, frequency, days per week yes Yesy Chawla caffeine use, averag e drinks per day yes Yesy Chawla passive cigarette sm lon exposure no Yesy Chawla smoking/tobacco cess ation, patient education and counseling yes Yesy Chawla smoking, year quit 3 weeks Yesy Trupti sommers number of years as a smoker 10 years or m ore Yesy Chawla smoking, date started 1975 Maddie Chawla smoking history, tot al pack/year 41 eYsy Chawla smoking history, tot al pack/day 0.5 Yesy Chawla cigarette use yes Yesy Leonashwin ll smoking status Current every da y smoker Yesy Chawla social history E&M Marital Statu s: Single L jagdish alone E thnicity: Smoking History: P tila currently smokes every day. P tila has been counseled to quit. Shea Baca MD social history reviewed E&M revi ewed - no changes required Shea Baca MD seatbelt usage 100 % [facility] physical exercise, frequency, days per week yes [facility] alcohol use, average drinks per day none [facility] alcohol use no [facility] caffeine use, averag e drinks per day yes [facility] drug use none [facility] smoking/tobacco cess ation, patient education and counseling yes Rowan Amilcar passive cigarette sm lon exposure no [facility] smoking, year quit 3 weeks Rowan Josh s number of years as a smoker 10 years or m ore Rowan Amilcar smoking, date started 1975 Rowan Amilcar smoking history, tot al pack/year 41 Rowan Amilcar smoking history, tot al pack/day 0.5 Rowan Amilcar cigarette use yes Rowan Amilcar smoking status Current every da y smoker Rowan Amilcar social history E&M Marital Statu s: Single L jagdish alone E thnicity: Smoking History: P tila currently smokes every day. P attamiko has been counseled to quit. Shea Baca MD social history reviewed E&M revi ewed - no changes required Shea Baca MD seatbelt usage 100 % Josefa tavarez physical exercise, frequency, days per week yes Josefa Griffin alcohol use, average drinks per day none Josefa Griffin alcohol use no Josefa marinelli caffeine use, averag e drinks per day yes Josefa Griffin drug use none Josefa marinelli smoking/tobacco cess ation, patient education and counseling yes Josefa Griffin passive cigarette sm lon exposure no Josefa Griffin smoking, year quit 3 weeks Josefa douglass number of years as a smoker 10 years or m ore Josefa Griffin smoking, date started 1976 Josefa Griffin smoking history, tot al pack/year 41 Josefa Griffin smoking history, tot al pack/day 0.5 Josefa Griffin cigarette use yes Josefa mckeon smoking status Current every da y smoker Josefa Griffin social history reviewed E&M revi ewed - no changes required Shea Baca MD seatbelt usage 100 % Rowan Amilcar physical exercise, frequency, days per week yes Rowan Amilcar alcohol use, average drinks per day none Rowan Amilcar alcohol use no Rowan Amilcar caffeine use, averag e drinks per day yes Rowan Amilcar drug use none Rowan Amilcar smoking/tobacco cess ation, patient education and counseling yes Rowan Amilcar passive cigarette sm lon exposure no Rowan Amilcar smoking, year quit 3 weeks Rowan Josh s number of years as a smoker 10 years or m ore Rowan Amilcar smoking, date started 1975 Rowan Amilcar smoking history, tot al pack/year 41 Rowan Amilcar smoking history, tot al pack/day 0.5 Rowan Amilcar cigarette use yes Rowan Amilcar smoking status Current every da y smoker [facility] social history reviewed E&M revi ewed - no changes required Shea Baca MD seatbelt usage 100 % Josefa tavarez physical exercise, frequency, days per week yes Josefa Griffin alcohol use, average drinks per day none Josefa Griffin alcohol use no Josefa marinelli caffeine use, averag e drinks per day yes Josefa Griffin drug use none Josefa marinelli smoking/tobacco cess ation, patient education and counseling yes Josefa Griffin passive cigarette sm lon exposure no Josefa Griffin smoking, year quit 3 weeks Josefa douglass number of years as a smoker 10 years or m ore Josefa Griffin smoking, date started 1975 Josefa Griffin smoking history, tot al pack/year 41 Josefa Griffin smoking history, tot al pack/day 0.5 Josefa Griffin cigarette use yes Josefa mckeon smoking status Current every da y smoker Josefa Griffin quit smoking, stage ready Shea Baca MD social history reviewed E&M revi ewed - no changes required Shea Baca MD seatbelt usage 100 % Josefa Tobiasmasonlawsonyuki tavarez physical exercise, frequency, days per week yes Josefa Gaby alcohol use, average drinks per day none Josefa Gaby alcohol use no Josefa Tobiasmasonlawsonjeffyosi yves caffeine use, averag e drinks per day yes Josefa Gaby drug use none Josefa Tobiaslily marinelli smoking/tobacco cess ation, patient education and counseling yes Josefa Griffin passive cigarette sm lon exposure no Josefa Gaby smoking, year quit 3 weeks Josefa Tobiasagus douglass number of years as a smoker 10 years or m ore Josefa Gaby smoking, date started 1976 Josefa Griffin smoking history, tot al pack/year 41 Josefa Tobiasvalentin smoking history, tot al pack/day 0.5 Josefa Griffin cigarette use yes Josefaandre mckeon smoking status Current every da y smoker Josefa Gaby social history reviewed E&M revi ewed - no changes required Shea Baca MD number of grandchildren Shea Baca MD seatbelt usage 100 % Thomas Ricketts physical exercise, frequency, days per week yes Thomas Baeza alcohol use, average drinks per day none Thomas Baeza alcohol use no Thomas haskins caffeine use, averag e drinks per day yes Thomas Baeza drug use none Thomas haskins smoking/tobacco cess ation, patient education and counseling yes Thomas Baeza passive cigarette sm lon exposure no Thomas Baeza smoking, year quit 3 weeks Thomas Baeza number of years as a smoker 10 years or m ore Thomas Baeza smoking, date started 1975 Jason Baeza smoking history, tot al pack/year 41 Thomas Baeza smoking history, tot al pack/day 0.5 Thomas Baeza cigarette use yes Thomas kebede smoking status Current every da y smoker Thomas Baeza social history E&M Marital Statu s: Single L jagdish alone E thnicity: Smoking History: Sherif tila currently smokes every day. P tila has been counseled to quit. Shea Baca MD social history reviewed E&M revi ewed - no changes required Shea Baca MD seatbelt usage 100 % Thomas Ricketts physical exercise, frequency, days per week yes ThomasArabella Baeza alcohol use, average drinks per day none ThomasArabella Baeza alcohol use no Thomas Kenny dreabill caffeine use, averag e drinks per day yes Thomas Baeza drug use none Thomas Kenny dreabill smoking/tobacco cess ation, patient education and counseling yes Thomas Baeza passive cigarette sm lon exposure no Thomas Baeza smoking, year quit 3 weeks Thomas Aryan number of years as a smoker 10 years or m ore Thomas Baeza smoking, date started 1975 Jason Baeza smoking history, tot al pack/year 41 Thomas Baeza smoking history, tot al pack/day 0.5 Thomas Baeza cigarette use yes Thomas kebede smoking status Current every da y smoker Thomas Baeza smoking history, tot al pack/year 41 Colt Etienne smoking history, tot al pack/year 41 Km Garcia RN social history reviewed E&M revi ewed - no changes required Shea Baca MD seatbelt usage 100 % Afua Hargrove yuki physical exercise, frequency, days per week yes Afua Dominguez alcohol use, average drinks per day none Afua Dominguez caffeine use, averag e drinks per day yes Afua Dominguez drug use none Afua Dominguez passive cigarette sm lon exposure no Afua Dominguez smoking/tobacco cess ation, patient education and counseling yes Afua Dominguez smoking, year quit 3 weeks Afua Avila Nasra number of years as a smoker 10 years or m ore Afua Dominguez smoking, date started 1975 Racquel castro Dominguez smoking history, tot al pack/year 38 Afua Dominguez smoking history, tot al pack/day 0.5 Afua Dominguez cigarette use yes Afua Dominguez smoking status Current every da y smoker Afua Dominguez social history E&M Marital Statu s: Single L jagdish alone E thnicity: Smoking History: P tila currently smokes every day. P tila has been counseled to quit. Shea Baca MD social history reviewed E&M revi ewed - no changes required Shea Baca MD seatbelt usage 100 % Bhavna Sheffield physical exercise, frequency, days per week yes Bhavna Sheffield alcohol use, average drinks per day none Bhavna Sheffield caffeine use, averag e drinks per day yes Bhavna Sheffield drug use none Bhavna Sheffield passive cigarette sm lon exposure no Bhavna smoking/tobacco cess ation, patient education and counseling yes Bhavna Sheffield smoking, year quit 3 weeks Bhavna July number of years as a smoker 10 years or m ore Bhavna Sheffield smoking, date started 1975 Bhavna smoking history, tot al pack/year 38 Bhavna smoking history, tot al pack/day 0.5 Bhavna cigarette use yes Bhavna smoking status Current every da y smoker Bhavna social history reviewed E&M jennifer garcia - no changes required Shea Baca MD seatbelt usage 100 % Afuabrittany mirza physical exercise, frequency, days per week yes Afua Dominguez alcohol use, average drinks per day none Afua Dominguez caffeine use, averag e drinks per day yes Afua Dominguez drug use none Af[facility] passive cigarette sm lon exposure no Afua Dominguez smoking/tobacco cess ation, patient education and counseling yes Afua Dominguez smoking, year quit 3 weeks Afua Austin Hammonds number of years as a smoker 10 years or m ore Afua Dominguez smoking, date started 1975 Racquel castro Dominguez smoking history, tot al pack/year 38 Afua Dominguez smoking history, tot al pack/day 0.5 Afua Dominguez cigarette use yes Afua Dominguez smoking status Current every da y smoker Afua Dominguez social history E&M Marital Statu s: Single L jagdish alone E thnicity: Smoking History: P attamiko currently smokes every day. P atient has been counseled to quit. Shea Baca MD seatbelt usage 100 % Shea dawkins MD physical exercise, frequency, days per week yes Shea Baca MD alcohol use, average drinks per day none Shea Baca MD caffeine use, averag e drinks per day yes Shea Baca MD drug use none Shea Baca MD passive cigarette sm lon exposure no Shea Baca MD smoking/tobacco cess ation, patient education and counseling yes Shea Baca MD smoking, year quit 3 weeks Shea Baca MD number of years as a smoker 10 years or m ore Shea Baca MD smoking, date started 1975 Portillo Baca MD smoking history, tot al pack/year 38 Shea Baca MD smoking history, tot al pack/day 0.5 Shea Baca MD cigarette use yes Shea Baca MD smoking status Current every da y smoker Shea Baca MD social history reviewed E&M revi ewed - no changes required Shea Baca MD smoking/tobacco cess ation, patient education and counseling yes Shea Baca MD social history reviewed E&M revi ewed - no changes required Shea Baca MD seatbelt usage 100 % Shea dawkins MD physical exercise, frequency, days per week yes Shea Baca MD alcohol use, average drinks per day none Shea Baca MD caffeine use, averag e drinks per day yes Shea Baca MD drug use none Shea Baca MD passive cigarette sm lon exposure no Shea Baca MD smoking, year quit 3 weeks Shea Baca MD number of years as a smoker 10 years or m ore Shea Baca MD smoking, date started 1975 Portillo Baca MD smoking history, tot al pack/year 38 Shea Baca MD smoking history, tot al pack/day 0.5 Shea Baca MD cigarette use yes Shea Baca MD smoking status Current every da y smoker Shea Baca MD smoking status Current every da y smoker Shea Baca MD social history reviewed E&M revi ewed - no changes required Shea Baca MD physical exercise, frequency, days per week yes Shea Baca MD drug use none Shea Baca MD social history reviewed E&M reviewed Shea Baca MD smoking history, tot al pack/year 38 Afua Alberto smoking history, tot al pack/year 37 Kylie Ontiveros RN social history reviewed E&M reviewed Rochelle Baptiste smoking history, tot al pack/year 37 Rochelleher Baptiste smoking history, tot al pack/year 37 Ha Vargas RN social history reviewed E&M reviewed Ha Vargas RN smoking status current every da y smoker Josefa Griffin smoking history, tot al pack/year 37 Josefa Griffin social history reviewed E&M reviewed Ha Vargas RN smoking history, tot al pack/year 37 Cory Gan social history reviewed E&M reviewed Ha Vargas RN smoking history, tot al pack/year 37 Tri Stueber smoking, date started 1976 Tri Stueber smoking history, tot al pack/day 0.5 Tri Stueber cigarette use yes Tri Stueber smoking status smoker - current status unknown Tri Stueber seatbelt usage 100 % Ha Vargas RN drug use no Ha Vargas RN passive cigarette sm lon exposure no Ha Vargas RN smoking history, tot al pack/year 1/2 pk/day Ha Vargas RN smoking, year quit 3 weeks Ha jimenez RN smoking status former smoker Ha Dawkins N social history reviewed E&M reviewed Ha Vargas RN social history reviewed E&M reviewed Ha Vargas RN social history E&M Marital Statu s: Single L jagdish alone E thnicity: Ha Vargas RN social history reviewed E&M reviewed Ha Vargas RN caffeine use, averag e drinks per day yes [employer] alcohol use, average drinks per day none [employer] number of years as a smoker 10 years or m ore [employer] smoking status Smoker [employer] FUNCTIONAL STATUS Date Observation Value Provider HRA, CV Assess/Plan, Angina (inactive) Management Plan continue current therapy Marcy PIRES HRA, CV Assess/Plan, Angina (inactive) Management Plan continue current therapy Shea Baca MD HRA, CV Assess/Plan, Angina (inactive) Management Plan continue current therapy Gabe Dalton MD HRA, CV Assess/Plan, Angina (inactive) Management Plan continue current therapy Shae Baca MD HRA, CV Assess/Plan, Angina (inactive) Management Plan continue current therapy Jamie Emily HRA, CV Assess/Plan, Angina (inactive) Management Plan schedule PCI Jamie Kyte HRA, CV Assess/Plan, Angina (inactive) Management Plan continue current therapy Shea Baca MD HRA, CV Assess/Plan, Angina (inactive) Management Plan continue current therapy, antianginal therapy Shea Baca MD HRA, CV Assess/Plan, Angina (inactive) Management Plan continue current therapy Shea Baca MD HRA, CV Assess/Plan, Angina (inactive) Management Plan continue current therapy Shea Baca MD HRA, CV Assess/Plan, Angina (inactive) Management Plan continue current therapy Shea Baca MD HRA, CV Assess/Plan, Angina (inactive) Management Plan continue current therapy Shea Baca MD HRA, CV Assess/Plan, Angina (inactive) Management Plan continue current therapy Shea Baca MD HRA, CV Assess/Plan, Angina (inactive) Management Plan continue current therapy, antianginal therapy Shea Baca MD MENTAL STATUS Date Observation Value Provider assessment of judgme nt and insight E&M Alert and oriented to time, place and person. Mood and affect are normal. Shea Baca MD assessment of judgme nt and insight E&M Alert and oriented to time, place and person. Mood and affect are normal. Ha Vargas RN assessment of judgme nt and insight E&M Alert and oriented to time, place and person. Mood and affect are normal. Ha Vargas RN assessment of judgme nt and insight E&M Alert and oriented to time, place and person. Mood and affect are normal. Ha Vargas RN assessment of judgme nt and insight E&M Alert and oriented to time, place and person. Mood and affect are normal. Ha Vargas RN assessment of judgme nt and insight E&M Alert and oriented to time, place and person. Mood and affect are normal. Ha Vargas RN assessment of judgme nt and insight E&M Alert and oriented to time, place and person. Mood and affect are normal. Ha Vargas RN assessment of judgme nt and insight E&M Alert and oriented to time, place and person. Mood and affect are normal. Ha Vargas RN FAMILY HISTORY Family Member Condition Father Family History of Di abetes: INSURANCE PROVIDERS Payer name Policy type / Coverage type Maryana red republican ID [employer] MED[employer]ARE PREMIER ADVANTRA PPO Commercial i nsurance [email or web address] [id number] ADVANCE DIRECTIVES Name Date DISCUSSED - NO DECISION MADE TREATMENT PLAN Date Name Performer [id number],C,per PCP Gabe Dalton MD [id number],C,T he Patient was reencouraged to stop smoking. Gabe Dalton MD [id number],C, B P today: 148/90 P rior BP: 143/88 (12/14/2022) Labs Reviewed: C reat: 1.15 (10/13/2013) C hol: 138 (10/13/2013) HDL: 29 (10/13/2013) T (10/13/2013) H is updated medication list for this problem includes: Metoprolol Tartrate 25 Mg Tablet (Metoprolol tartrate) ..... Take 1 and 1/2 tablets by mouth twice daily Valsartan-hydrochlorothiazide 160-25 Mg Tablet (Valsartan-hydrochlorothiazide) ..... Take 1 tablet by mouth once a day Aspirin 81 Mg Tablet,delayed Release (dr/ec) (Aspirin) ..... 1 tablet by mouth once a day Gabe Dalton MD [id number],B,W ill check BRITTANIE and he will follow up in 1 month Gabe Dalton MD [id number],C,0 05/2022 BRITTANIE shows severe arterial disease of the lower extremities bilaterally. There is monophasic flow in the popliteal, MUCK FARMER, and ASTRID bilaterally. Moderate arterial stenosis of the left proximal SFA. Johan deluca had angioplasty done last month in right LE but continues to c/o pain. He has limited mobility due to pain and states he cannot walk more than 100 ft. The pain is located in his right calf and is described as a cramp. The pain resolves within 30 minutes of sitting down and elevating leg. He states pain has overall worsened since last procedure. He is schedule for re-AIF on 01/10/2023. Shea Baca MD [id number],C,C ontinues on Metformin, ReliOn, novolin, and insulin. Reduced intake of carbohydrates and sugars advised. Wc per pt Shea Baca MD [id number],C, H is updated medication list for this problem includes: Atorvastatin 80 Mg Tablet (Atorvastatin) Vascepa 1 Gram Capsule (Icosapent ethyl) ..... 2 capsule twice a day Shea Baca MD [id number],TruptiS olivia encouraged to stop smoking. Techniques disucssed. He states he is attempting to quit Shea Baca MD [id number],CC P free. Continues on aspirin and plavix. Shea Baca MD [id number],C B P today: 143/88 P rior BP: 160/89 (11/09/2022) Labs Reviewed: C reat: 1.15 (10/13/2013) C hol: 138 (10/13/2013) HDL: 29 (10/13/2013) T (10/13/2013) H is updated medication list for this problem includes: Metoprolol Tartrate 25 Mg Tablet (Metoprolol tartrate) ..... Take 1 and 1/2 tablets by mouth twice daily Valsartan-hydrochlorothiazide 160-25 Mg Tablet (Valsartan-hydrochlorothiazide) ..... Take 1 tablet by mouth once a day Aspirin 81 Mg Tablet,delayed Release (dr/ec) (Aspirin) ..... 1 tablet by mouth once a day Gabe Dalton MD [id number],C,H e has severe PAD but althouhg i fixed his proximal SFA, he has numbness and some pain in his foot. A duplex done aftrer that showed monophasic wavefoms in AT and PT. Since his Sx have progressed, I will try to open up the pop and if i am unable to get through then I will refer him to vascular suregoyuki Dalton MD [id number],Tony Lyles encouraged to stop smoking. Techniques disucssed. He states he is attempting to quit Shea Baca MD [id number],Trupti Lyles ontinues on Metformin, ReliOn, novolin, and insulin. Reduced intake of carbohydrates and sugars advised. Shea Baca MD [id number],C,P t is monitoring bp at home and states it is elevated today BP today: 160/89 P rior BP: 151/92 (05/03/2022) His updated medication list for this problem includes: Metoprolol Tartrate 50 Mg Tablet (Metoprolol tartrate) ..... Take 1 tablet by mouth twice a day Valsartan-hydrochlorothiazide 160-25 Mg Tablet (Valsartan-hydrochlorothiazide) ..... Take 1 tablet by mouth once a day Aspirin 81 Mg Tablet,delayed Release (dr/ec) (Aspirin) ..... 1 tablet by mouth once a day Chol: 138 (10/13/2013) HDL: 29 (10/13/2013) T (10/13/2013) Shea Baca MD [id number],C, H is updated medication list for this problem includes: Atorvastatin 80 Mg Tablet (Atorvastatin) Vascepa 1 Gram Capsule (Icosapent ethyl) ..... 2 capsule twice a day Shea Baca MD [id number],C,C P free. Continues on aspirin and plavix. Will repeat ECHO before next yearly f/u. Shea Baca MD [id number],C,S sampson he is barely able to walk due to lower leg pain. He describes it as a numbness. He continues to have claudication symptoms while walking. Only able to walk half a block. 05/2022 BRITTANIE shows severe arterial disease of the lower extremities bilaterally. There is monophasic flow in the popliteal, MUCK FARMER, and ASTRID bilaterally. Moderate arterial stenosis of the left proximal SFA. P sarah for AIF. Will get bloodwork done prior to procedure. Will need transportation provided. Shea Baca MD [id number],W, H e has had 2 flareup of pain on the top of his right foot which he is concerned is gout. I recommended ibuprofen for the pain and leave further management of this issue to you. Shea Baca MD [id number],S, R esolved. Shea Baca MD [id number],S, E tiology is unclear. Previous TSH normal. Continues on metoprolol tartate 50mg BID. Shea Baca MD [id number],W, C ontinues on Lipitor and Vascepa. Recent triglycerides level was 910. He had been off his meds for a year at the time of this bloodwork but has since resumed both lipitor and vascepa. Shea Baca MD [id number],S, S KARYLY ENCOURAGED TO STOP SMOKING; SMOKING CESSATION TECHNIQUES DISCUSSED. Shea Baca MD [id number],S, C omplains of leg tightness after walking for a while. Sxs improve with rest and he continues on. Shea Baca MD [id number],S, B lood pressure elevated today. Advised reduced sodium intake and routine monitoring of the blood pressure. We aim for blood pressure less than 130/80. Shea Baca MD [id number],W, C ontinues on Metformin, ReliOn, and novolin. Reduced intake of carbohydrates and sugars advised. Recent A1c in lesley 11% range after he'd stopped all his meds for a year. Shea Baca MD [id number],S, C hest pain free. Continues aspirin. Recommend resuming plavix. Shea Baca MD Cardiology:BP slight ly above goal w ill have him continue meds and monitor at home H is updated medication list for this problem includes: Metoprolol Tartrate 25 Mg Tablet (Metoprolol tartrate) ..... Take 1 and 1/2 tablets by mouth twice daily Valsartan-hydrochlorothiazide 160-25 Mg Tablet (Valsartan-hydrochlorothiazide) ..... Take 1 tablet by mouth once a day Aspirin 81 Mg Tablet,delayed Release (dr/ec) (Aspirin) ..... 1 tablet by mouth once a day [facility] Cardiology:cessation encouraged w ill do LDCT chest [facility] Cardiology:would con corie hoskins if cleared by endo as he has history of pancreatitis H is updated medication list for this problem includes: Valsartan-hydrochlorothiazide 160-25 Mg Tablet (Valsartan-hydrochlorothiazide) ..... Take 1 tablet by mouth once a day Metformin 1,000 Mg Tablet (Metformin) ..... 1 tablet twice a day Aspirin 81 Mg Tablet,delayed Release (dr/ec) (Aspirin) ..... 1 tablet by mouth once a day [facility] Cardiology:will upda te lipid panel i f trigylcerides remain elevated will plan for arrowhead study H is updated medication list for this problem includes: Atorvastatin 80 Mg Tablet (Atorvastatin) ..... Take 1 tablet by mouth once a day Vascepa 1 Gram Capsule (Icosapent ethyl) ..... 2 capsule twice a day [facility] Cardiology:follows w ith Dr. Garcia will have him reach out to him regarding holding plavix prior to colonoscopy if ok will send clearance for colonscopy [facility] Cardiology:No new ch est pain or SOB E KG today normal sinus mechanism w ill update echo to look for and new LV dysfunction or WMA [facility] Cardiology:Pt has stopped brandon Baca MD Cardiology: E tiology is unclear. Previous TSH normal. Continues on metoprolol tartate 50mg BID. Shea Baca MD Cardiology: H is updated medication list for this problem includes: Atorvastatin 80 Mg Tablet (Atorvastatin) ..... Take 1 tablet by mouth once a day Vascepa 1 Gram Capsule (Icosapent ethyl) ..... 2 capsule twice a day Shea Baca MD Cardiology: H is updated medication list for this problem includes: Valsartan-hydrochlorothiazide 160-25 Mg Tablet (Valsartan-hydrochlorothiazide) ..... Take 1 tablet by mouth once a day Metformin 1,000 Mg Tablet (Metformin) ..... 1 tablet twice a day Aspirin 81 Mg Tablet,delayed Release (dr/ec) (Aspirin) ..... 1 tablet by mouth once a day Shea Baca MD Cardiology: B P today: 150/95 P rior BP: 148/90 (01/26/2023) Labs Reviewed: C reat: 1.15 (10/13/2013) C hol: 138 (10/13/2013) HDL: 29 (10/13/2013) LDL: 43 (10/13/2013) T (10/13/2013) His updated medication list for this problem includes: Metoprolol Tartrate 25 Mg Tablet (Metoprolol tartrate) ..... Take 1 and 1/2 tablets by mouth twice daily Valsartan-hydrochlorothiazide 160-25 Mg Tablet (Valsartan-hydrochlorothiazide) ..... Take 1 tablet by mouth once a day Aspirin 81 Mg Tablet,delayed Release (dr/ec) (Aspirin) ..... 1 tablet by mouth once a day Shea Baca MD Cardiology:NO CP h e has stopped smoking Shea Baca MD Cardiology:Pt had fe moral tibial bypass graft in [facility] Shea Baca MD Cardiology:per PCP Gabe Dalton MD Cardiology:The Patie nt was reencouraged to stop smoking. Gabe Dalton MD Cardiology: B P today: 148/90 P rior BP: 143/88 (12/14/2022) Labs Reviewed: C reat: 1.15 (10/13/2013) C hol: 138 (10/13/2013) HDL: 29 (10/13/2013) T (10/13/2013) His updated medication list for this problem includes: Metoprolol Tartrate 25 Mg Tablet (Metoprolol tartrate) ..... Take 1 and 1/2 tablets by mouth twice daily Valsartan-hydrochlorothiazide 160-25 Mg Tablet (Valsartan-hydrochlorothiazide) ..... Take 1 tablet by mouth once a day Aspirin 81 Mg Tablet,delayed Release (dr/ec) (Aspirin) ..... 1 tablet by mouth once a day Gabe Dalton MD Cardiology:Will chec k BRTITANIE and he will follow up in 1 month Gabe Dalton MD Cardiology:05/2022 A BI shows severe arterial disease of the lower extremities bilaterally. There is monophasic flow in the popliteal, MUCK FARMER, and ASTRID bilaterally. Moderate arterial stenosis of the left proximal SFA. Johan deluca had angioplasty done last month in right LE but continues to c/o pain. He has limited mobility due to pain and states he cannot walk more than 100 ft. The pain is located in his right calf and is described as a cramp. The pain resolves within 30 minutes of sitting down and elevating leg. He states pain has overall worsened since last procedure. He is schedule for re-AIF on 01/10/2023. Shea Baca MD Cardiology:Continues on Metformin, ReliOn, novolin, and insulin. Reduced intake of carbohydrates and sugars advised. Wc per pt Shea Baca MD Cardiology: H is updated medication list for this problem includes: Atorvastatin 80 Mg Tablet (Atorvastatin) Vascepa 1 Gram Capsule (Icosapent ethyl) ..... 2 capsule twice a day Shea Baca MD Cardiology:Strongly encouraged to stop smoking. Techniques disucssed. He states he is attempting to quit Shea Baca MD Cardiology:CP free. Continues on aspirin and plavix. Shea Baca MD Cardiology: B P today: 143/88 P rior BP: 160/89 (11/09/2022) Labs Reviewed: C reat: 1.15 (10/13/2013) C hol: 138 (10/13/2013) HDL: 29 (10/13/2013) T (10/13/2013) His updated medication list for this problem includes: Metoprolol Tartrate 25 Mg Tablet (Metoprolol tartrate) ..... Take 1 and 1/2 tablets by mouth twice daily Valsartan-hydrochlorothiazide 160-25 Mg Tablet (Valsartan-hydrochlorothiazide) ..... Take 1 tablet by mouth once a day Aspirin 81 Mg Tablet,delayed Release (dr/ec) (Aspirin) ..... 1 tablet by mouth once a day Gabe Dalton MD Cardiology:He has se jennifer PAD but althouhg i fixed his proximal SFA, he has numbness and some pain in his foot. A duplex done aftrer that showed monophasic wavefoms in AT and PT. Since his Sx have progressed, I will try to open up the pop and if i am unable to get through then I will refer him to vascular suregoyuki Dalton MD Cardiology:Strongly encouraged to stop smoking. Techniques disucssed. He states he is attempting to quit Shea Baca MD Cardiology:Continues on Metformin, ReliOn, novolin, and insulin. Reduced intake of carbohydrates and sugars advised. Shea Baca MD Cardiology:Pt is mon itoring bp at home and states it is elevated today BP today: 160/89 P rior BP: 151/92 (05/03/2022) His updated medication list for this problem includes: Metoprolol Tartrate 50 Mg Tablet (Metoprolol tartrate) ..... Take 1 tablet by mouth twice a day Valsartan-hydrochlorothiazide 160-25 Mg Tablet (Valsartan-hydrochlorothiazide) ..... Take 1 tablet by mouth once a day Aspirin 81 Mg Tablet,delayed Release (dr/ec) (Aspirin) ..... 1 tablet by mouth once a day Chol: 138 (10/13/2013) HDL: 29 (10/13/2013) T (10/13/2013) Shea Baca MD Cardiology: H is updated medication list for this problem includes: Atorvastatin 80 Mg Tablet (Atorvastatin) Vascepa 1 Gram Capsule (Icosapent ethyl) ..... 2 capsule twice a day Shea Baca MD Cardiology:CP free. Continues on aspirin and plavix. Will repeat ECHO before next yearly f/u. Shea Baca MD Cardiology:States he is barely able to walk due to lower leg pain. He describes it as a numbness. He continues to have claudication symptoms while walking. Only able to walk half a block. 0 05/2022 BRITTANIE shows severe arterial disease of the lower extremities bilaterally. There is monophasic flow in the popliteal, MUCK FARMER, and ASTRID bilaterally. Moderate arterial stenosis of the left proximal SFA. P sarah for AIF. Will get bloodwork done prior to procedure. Will need transportation provided. Shea Baca MD Cardiology: Johan deluca has had 2 flareup of pain on the top of his right foot which he is concerned is gout. I recommended ibuprofen for the pain and leave further management of this issue to you. Shea Baca MD Cardiology: R esolved. Shea Baca MD Cardiology: E tiology is unclear. Previous TSH normal. Continues on metoprolol tartate 50mg BID. Shea Baca MD Cardiology: C ontinues on Lipitor and Vascepa. Recent triglycerides level was 910. He had been off his meds for a year at the time of this bloodwork but has since resumed both lipitor and vascepa. Shea Baca MD Cardiology: S LIATNGLY ENCOURAGED TO STOP SMOKING; SMOKING CESSATION TECHNIQUES DISCUSSED. Shea Baca MD Cardiology: C omplains of leg tightness after walking for a while. Sxs improve with rest and he continues on. Shea Baca MD Cardiology: B lood pressure elevated today. Advised reduced sodium intake and routine monitoring of the blood pressure. We aim for blood pressure less than 130/80. Shea Baca MD Cardiology: C ontinues on Metformin, ReliOn, and novolin. Reduced intake of carbohydrates and sugars advised. Recent A1c in lesley 11% range after he'd stopped all his meds for a year. Shea Baca MD Cardiology: C hest pain free. Continues aspirin. Recommend resuming plavix. Shea Baca MD Cardiology follow up :STRONGLY ENCOURAGED TO STOP SMOKING; SMOKING CESSATION TECHNIQUES DISCUSSED. Cardiology follow up :Continues on Metformin, Novolog, and Levemir. Reduced intake of carbohydrates and sugars advised. Cardiology follow up :Continues on Lipitor, Fenofibrate, and Vascepa. Most recent lipid panel with triglycerides > 1500 and LDL that could not be calculated. Reduced intake of carbohydrates, fats, and sugars advised. Compliance with diet and medications stressed. Cardiology follow up :Etiology is unclear. Previous TSH normal. Will increase Metoprolol Tartrate to 37.5mg BID for HR and BP control. Cardiology follow up :Blood pressure elevated today. Will increase Metoprolol Tartrate to 37.5mg BID for HR and BP control. Advised reduced sodium intake and routine monitoring of the blood pressure. We aim for blood pressure less than 130/80. Cardiology follow up :s/p recent bypass with improvement in symptoms. He continues on Aspirin and Plavix and follows CT surgery. Cardiology:Continues on Metformin, Novolog, and Levemir. Reduced intake of carbohydrates and sugars advised. Cardiology:STRONGLY ENCOURAGED TO STOP SMOKING; SMOKING CESSATION TECHNIQUES DISCUSSED. Cardiology:Etiology is unclear. Previous TSH normal.On metoprolol 50mg BID. Any increase in beta corinne dosage does result in increased tiredness and fatigue. Cardiology:Continues on Lipitor, Fenofibrate, and Vascepa. A lipid panel will be done. Cardiology:Blood pre ssure remains elevated. Will check renal angiogram. Cardiology:Chest hilda n and abnormal stress test. A cardiac cath was discussed with the patient and he is agreeable to undergo the procedure which will be arranged. The risks and benefits of the procedure, including but not limited the risk of heart attack, , stroke, bleeding, kidney failure, and loss of limb as well as the alternative of continued medical therapy, stress testing or bypass surgery were discussed with the patient and any present family members and the patient wishes to proceed with cardiac cath and stenting. The patient and family had opportunity to discuss this with us. Written material including informed consent was given out. Jamie Cardiology follow up :STRONGLY ENCOURAGED TO STOP SMOKING; SMOKING CESSATION TECHNIQUES DISCUSSED. Cardiology follow up :Etiology is unclear. Previous TSH normal.On metoprolol 50mg BID. Any increase in beta corinne dosage does result in increased tiredness and fatigue. Cardiology follow up :Uncontrolled diabetes with an A1c of 10. Reduced intake of carbohydrates and sugars advised. Advised to check his blood sugars prior to taking insulin to prevent hypoglycemic episodes. Continues on Metformin, Levemir, and Novolog. Cardiology follow up :Continues on Lipitor, Fenofibrate, and Vascepa. He would benefit from a fasting lipid panel. Cardiology follow up :Blood pressure elevated today likely due to stress test. His blood pressure earlier in the day was better controlled. No changes to antihypertensives made. He continues on Diovan, Metoprolol, and Minipress. Advised reduced sodium intake and routine monitoring of the blood pressure. We aim for a blood pressure < 130/80. If it remains elevated, he will benefit from changes in his antihypertensives. Cardiology follow up :Chest pain unchanged. His stress test today was abnormal. Although he is known to have RCA occlusion, he does have a stent to the OM, I feel that he would benefit from a repeat cardiac cath. This will be discussed with him at his next appointment in the very near future. [facility] Telehealth :Blood pressure contr ol is satisfactory. Telehealth :Markedly elevated triglycerides. Unclear whether he is compliant with his medications. He would benefit from a fasting lipid panel. At his last admission, Fenofibrate was added to Atorvastatin and Vascepa. [facility] Telehealth :Continue s on Metformin, Victoza, Levemir, and Novolog. [facility] Telehealth :Will check carotid d oppler. Telehealth :Effort r elated chest pain in a patient with CAD and history of stents, will arrange echocardiogram and stress test. Jamie Diaz Cardiology follow up :Continues on Metformin, Victoza, Levemir, and Novolog. Shea Baca MD Cardiology follow up :Continues on Lipitor and Vascepa. Will repeat lipid panel in 8 weeks. Shea Baca MD Cardiology follow up:Continues o n Aciphex. Shea Baca MD Cardiology follow up :Etiology is unclear. Recent TSH normal.On metoprolol 50mg BID. Any increase in beta corinne dosage does result in increased tiredness and fatigue. Shea Baca MD Cardiology follow up :Blood pressure elevated today at 150/86. No changes to antihypertensives were made. The patient will monitor his blood pressure. Shea Baca MD Cardiology follow up :Stable angina. Continues to experience chest tightness on exertion but is much improved with nitro patch. Continues on Ranexa, ASA, nitro patch, and sublingual nitro as needed. Shea Baca MD Cardiology Follow up :Blood pressure control is satisfactory. Shea Baca MD Cardiology Follow up:On multiple medications. Shea Baca MD Cardiology Follow up :Continues on Metformin, Victoza, Levemir, and Novolog. Shea Baca MD Cardiology Follow up :On Lipitor, Vascepa, and startede on Gemfibrozil by your office. I have disussed with this patient that Repatha would be a better option if his LDL is elevated. We await the blood results from your office. Shea Baca MD Cardiology Follow up :Chest pain is unchanged from previous. He is on Ranexa. Nitro patch has been prescribed and hopefully will improve his symptoms. Shea Baca MD Cardiology follow up :On Lipitor and Vascepa. Shea Baca MD Cardiology follow up :Blood pressure control is satisfactory. Shea Baca MD Cardiology follow up :Persistent sinus tach, etiology unclear. Will recheck TSH. On metoprolol 50mg BID. Any increase in beta corinne dosage does result in increased tiredness and fatigue. Shea Baca MD Cardiology follow up :Difficulty controlling with high doses of insulin and medication in the morning. Extensive education has been provided. He has been advised not to take short acting insulin if he does not eat. Shea Baca MD Cardiology follow up :Chest pain is unchanged from previous. He is on Ranexa and uses NTG as needed. Shea Baca MD Cardiology Follow up :On Lipitor and Vascepa. Shea Baca MD Cardiology Follow up :Blood pressure control is satisfactory. Shea Baca MD Cardiology Follow up :Control has improved since he was started on study drugs. Shea Baca MD Cardiology Follow up :Occasional episodes of effort-related chest discomfort and shortness of breath, improved with NTG before the exertion. Continues on Ranexa. Shea Baca MD Cardiology Follow up :Still persists. Was taken off of beta blockers before last visit, because it did not benefit him. Will try again with metoprolol tartrate 50mg BID. Shea Baca MD Cardiology Follow up :Smoking ce ssation advised. Shea Baca MD Cardiology Follow up :Control has improved since he was started on study drugs. Shea Baca MD Cardiology Follow up :Blood pressure control is satisfactory. Shea Baca MD Cardiology Follow up :Continues to have episodes of effort-related chest discomfort, with occasional radiation to jaws. This pain is relieved with NTG. Likely etiology is occlusion of RCA stent. Continues on Ranexa 1000mg BID. Advised to take NTG SL prophylactically if he intends to exert himself heavily. Shea Baca MD Cardiology:On Alprozalam. Portillo Baca MD Cardiology:BP contro l could be better but will monitor. On Diovan 160mg daily. Shea Baca MD Cardiology:As per octavio espitia, his diabetic control has improved. I did discuss with him the best study. He is agreeable and will see whether he can be enrolled in this study for better diabestic control and regression of CAD. Shea Baca MD Cardiology:On Lipitor and Vascep a. Shea Baca MD Cardiology:Stable an destin. 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 He is on anti-anginal medications which he will continue. Shea Baca MD Cardiology:On lipitor. Shea Baca MD Cardiology:He is on insulin and victoza and januvent. Shea Baca MD Cardiology:BP control is satisfa ctory. On diovan. Shea Baca MD Cardiology:Last cath showed 100% RCA occlusion. Shea Baca MD Cardiology:Still per sists. He is off of his beta-blockers, which did not seem to help him. His last thyroid function was normal. Shea Baca MD Cardiology:New onset of symptoms. Relief with nitroglycerine. Last cath showed 100% occlusion of the RCA at the ostium. Will arrange a stress test and increase his ranexa to 1000 mg twice daily. He will continue taking nitro as needed for pain relief. He will commence his aspirin. Shea Baca MD follow up: H is updated medication list for this problem includes: Buspirone Hcl 5 Mg Oral Tabs (Buspirone hcl) ..... Twice daily Alprazolam 0.5 Mg Tabs (Alprazolam) ..... 1 tablet by mouth as needed Aspirin 81 Mg Ec Tab (Aspirin) ..... Take one (1) tablet by mouth daily Nitrolingual 0.4 Mg/spray Soln (Nitroglycerin) ..... One spray prn 4.9gm. bottle Ranexa 500 Mg Tb12 (Ranolazine) ..... Two tab twice daily Metoprolol Succinate Er 100 Mg Oral [id number] (Metoprolol succinate) ..... One tab daily Effient 10 Mg Tabs (Prasugrel hcl) ..... One tablet daily Orders: L IPID PANEL (7600) T HYROID PANEL WITH TSH, 3RD GENERATION (3444) H EMOGLOBIN A1c (496) S leep Study (*) C OMPREHENSIVE METABOLIC PANEL W/EGFR (24579) T 3, TOTAL (859) T -4, FREE (866) Shea Baca MD follow up: H is updated medication list for this problem includes: Diovan 160 Mg Tabs (Valsartan) ..... 1 tablet by mouth daily Aspirin 81 Mg Ec Tab (Aspirin) ..... Take one (1) tablet by mouth daily Metoprolol Succinate Er 100 Mg Oral [id number] (Metoprolol succinate) ..... One tab daily Eql Potassium Gluconate 595 Mg Tabs (Potassium gluconate) ..... Once daily Magnesium 250 Mg Tabs (Magnesium) ..... Once daily Orders: L IPID PANEL (7600) T HYROID PANEL WITH TSH, 3RD GENERATION (4355) H EMOGLOBIN A1c (496) S leep Study (*) C OMPREHENSIVE METABOLIC PANEL W/EGFR (95399) T 3, TOTAL (859) T -4, FREE (866) Shea Baca MD follow up: H is updated medication list for this problem includes: Diovan 160 Mg Tabs (Valsartan) ..... 1 tablet by mouth daily Aspirin 81 Mg Ec Tab (Aspirin) ..... Take one (1) tablet by mouth daily Metoprolol Succinate Er 100 Mg Oral [id number] (Metoprolol succinate) ..... One tab daily Orders: L IPID PANEL (7600) T HYROID PANEL WITH TSH, 3RD GENERATION (7544) HEMOGLOBIN A1c (496) S leep Study (*) C OMPREHENSIVE METABOLIC PANEL W/EGFR (50876) T 3, TOTAL (859) T -4, FREE (866) Shea Baca MD follow up: H is updated medication list for this problem includes: Diovan 160 Mg Tabs (Valsartan) ..... 1 tablet by mouth daily Glimepiride 2 Mg Tabs (Glimepiride) ..... 1 tablet by mouth twice daily Janumet 50-500 Mg Tabs (Sitagliptin-metformin hcl) ..... 1 tablet by mouth twice daily Aspirin 81 Mg Ec Tab (Aspirin) ..... Take one (1) tablet by mouth daily Humalog Soln (Insulin lispro (human) soln) ..... 35 units three times a day Levemir Flexpen Soln (Insulin detemir soln) ..... 55 units twice a day Orders: L IPID PANEL (7600) T HYROID PANEL WITH TSH, 3RD GENERATION (7444) H EMOGLOBIN A1c (496) S lee Study (*) C OMPREHENSIVE METABOLIC PANEL W/EGFR (85516) T 3, TOTAL (859) T -4, FREE (866) Shea Baca MD follow up: H is updated medication list for this problem includes: Lipitor 40 Mg Tabs (Atorvastatin calcium) ..... 1 tablet by mouth daily Vascepa 1 Gm Caps (Icosapent ethyl) ..... 2 caps daily Gemfibrozil 600 Mg Tabs (Gemfibrozil) ..... Twice daily Orders: L IPID PANEL (7600) T HYROID PANEL WITH TSH, 3RD GENERATION (7444) H EMOGLOBIN A1c (496) S leep Study (*) C OMPREHENSIVE METABOLIC PANEL W/EGFR (14577) T 3, TOTAL (859) T -4, FREE (866) Shea Baca MD follow up: H is updated medication list for this problem includes: Lipitor 40 Mg Tabs (Atorvastatin calcium) ..... 1 tablet by mouth daily Aspirin 81 Mg Ec Tab (Aspirin) ..... Take one (1) tablet by mouth daily Nitrolingual 0.4 Mg/spray Soln (Nitroglycerin) ..... One spray prn 4.9gm. bottle Ranexa 500 Mg Tb12 (Ranolazine) ..... Two tab twice daily Vascepa 1 Gm Caps (Icosapent ethyl) ..... 2 caps daily Metoprolol Succinate Er 100 Mg Oral [id number] (Metoprolol succinate) ..... One tab daily Effient 10 Mg Tabs (Prasugrel hcl) ..... One tablet daily Gemfibrozil 600 Mg Tabs (Gemfibrozil) ..... Twice daily Orders: E KG (CPT-63144) L IPID PANEL (7600) T HYROID PANEL WITH TSH, 3RD GENERATION (7444) H EMOGLOBIN A1c (496) S lee Study (*) C OMPREHENSIVE METABOLIC PANEL W/EGFR (52240) T 3, TOTAL (859) T -4, FREE (866) Shea Baca MD Follow Up: O rders: Trupti cruzdiac Cath - Left - GC (*) Karen Pandey Follow Up: H is updated medication list for this problem includes: Diovan 160 Mg Tabs (Valsartan) ..... 1 tablet by mouth daily Glimepiride 2 Mg Tabs (Glimepiride) ..... 1 tablet by mouth twice daily Janumet 50-500 Mg Tabs (Sitagliptin-metformin hcl) ..... 1 tablet by mouth twice daily Aspirin 81 Mg Ec Tab (Aspirin) ..... Take one (1) tablet by mouth daily Humalog Soln (Insulin lispro (human) soln) ..... 15 units three times a day Levemir Flexpen Soln (Insulin detemir soln) ..... 40u twice a day Orders: Trupti ardiac Cath - Left - GC (*) Karen Pandey Follow Up: H is updated medication list for this problem includes: Diovan 160 Mg Tabs (Valsartan) ..... 1 tablet by mouth daily Aspirin 81 Mg Ec Tab (Aspirin) ..... Take one (1) tablet by mouth daily Metoprolol Succinate 25 Mg Tb24 (Metoprolol succinate) ..... Three tablets twice daily Orders: Trupti ardiac Cath - Left - GC (*) Karen Pandey Follow Up Karen Pandey Follow Up: H is updated medication list for this problem includes: Lipitor 40 Mg Tabs (Atorvastatin calcium) ..... 1 tablet by mouth daily Vascepa 1 Gm Caps (Icosapent ethyl) ..... 2 caps daily Gemfibrozil 600 Mg Tabs (Gemfibrozil) ..... Twice daily Orders: Trupti cruzeWiseac Cath - Left - GC (*) Karen Pandey Follow Up: H is updated medication list for this problem includes: Lipitor 40 Mg Tabs (Atorvastatin calcium) ..... 1 tablet by mouth daily Aspirin 81 Mg Ec Tab (Aspirin) ..... Take one (1) tablet by mouth daily Nitrolingual 0.4 Mg/spray Soln (Nitroglycerin) ..... One spray prn 4.9gm. bottle Ranexa 500 Mg Tb12 (Ranolazine) ..... Two tab twice daily Vascepa 1 Gm Caps (Icosapent ethyl) ..... 2 caps daily Metoprolol Succinate 25 Mg Tb24 (Metoprolol succinate) ..... Three tablets twice daily Effient 10 Mg Tabs (Prasugrel hcl) ..... One tablet daily Gemfibrozil 600 Mg Tabs (Gemfibrozil) ..... Twice daily Orders: Trupti garcias [facility] - (*) Karen Pandey Follow up : O rders: Trupti arotid Duplex Bilateral (CPT-00297) Shea Bcaa MD Follow up : H is updated medication list for this problem includes: Diovan 160 Mg Tabs (Valsartan) ..... 1 tablet by mouth daily Aspirin 81 Mg Ec Tab (Aspirin) ..... Take one (1) tablet by mouth daily Metoprolol Succinate 25 Mg Tb24 (Metoprolol succinate) ..... Three tablets twice daily Orders: Trupti arotid Duplex Bilateral (CPT-35667) Shea Baca MD Follow up : H is updated medication list for this problem includes: Lipitor 40 Mg Tabs (Atorvastatin calcium) ..... 1 tablet by mouth daily Vascepa 1 Gm Caps (Icosapent ethyl) ..... 2 caps daily Gemfibrozil 600 Mg Tabs (Gemfibrozil) ..... Twice daily Orders: Trupti arotid Duplex Bilateral (CPT-86590) Shea Baca MD Follow up : H is updated medication list for this problem includes: Aspirin 81 Mg Ec Tab (Aspirin) ..... Take one (1) tablet by mouth daily Nitrolingual 0.4 Mg/spray Soln (Nitroglycerin) ..... One spray prn 4.9gm. bottle Ranexa 500 Mg Tb12 (Ranolazine) ..... Two tab twice daily Metoprolol Succinate 25 Mg Tb24 (Metoprolol succinate) ..... Three tablets twice daily Effient 10 Mg Tabs (Prasugrel hcl) ..... One tablet daily Orders: Trupti arotid Duplex Bilateral (CPT-09605) Shea Baca MD Follow up : H is updated medication list for this problem includes: Aspirin 81 Mg Ec Tab (Aspirin) ..... Take one (1) tablet by mouth daily Nitrolingual 0.4 Mg/spray Soln (Nitroglycerin) ..... One spray prn 4.9gm. bottle Ranexa 500 Mg Tb12 (Ranolazine) ..... Two tab twice daily Metoprolol Succinate 25 Mg Tb24 (Metoprolol succinate) ..... Three tablets twice daily Effient 10 Mg Tabs (Prasugrel hcl) ..... One tablet daily Orders: C arotid Duplex Bilateral (CPT-15947) Shea Baca MD Follow up : H is updated medication list for this problem includes: Lipitor 40 Mg Tabs (Atorvastatin calcium) ..... 1 tablet by mouth daily Aspirin 81 Mg Ec Tab (Aspirin) ..... Take one (1) tablet by mouth daily Nitrolingual 0.4 Mg/spray Soln (Nitroglycerin) ..... One spray prn 4.9gm. bottle Ranexa 500 Mg Tb12 (Ranolazine) ..... Two tab twice daily Vascepa 1 Gm Caps (Icosapent ethyl) ..... 2 caps daily Metoprolol Succinate 25 Mg Tb24 (Metoprolol succinate) ..... Three tablets twice daily Effient 10 Mg Tabs (Prasugrel hcl) ..... One tablet daily Gemfibrozil 600 Mg Tabs (Gemfibrozil) ..... Twice daily Orders: E KG (CPT-30213) C arotid Duplex Bilateral (CPT-56160) Shea Baca MD follow up Shea Guerrero follow up: H is updated medication list for this problem includes: Diovan 160 Mg Tabs (Valsartan) ..... 1 tablet by mouth daily Aspirin 81 Mg Ec Tab (Aspirin) ..... Take one (1) tablet by mouth daily Metoprolol Succinate 25 Mg Tb24 (Metoprolol succinate) ..... Three tablets twice daily Orders: E KG (CPT-51140) Shea Baca MD follow up: H is updated medication list for this problem includes: Diovan 160 Mg Tabs (Valsartan) ..... 1 tablet by mouth daily Aspirin 81 Mg Ec Tab (Aspirin) ..... Take one (1) tablet by mouth daily Metoprolol Succinate 25 Mg Tb24 (Metoprolol succinate) ..... Three tablets twice daily Orders: E KG (CPT-60323) Shea Baca MD follow up Shea Guerrero follow up Shea Guerrero follow up: H is updated medication list for this problem includes: Diovan 160 Mg Tabs (Valsartan) ..... 1 tablet by mouth daily Aspirin 81 Mg Ec Tab (Aspirin) ..... Take one (1) tablet by mouth daily Metoprolol Succinate 25 Mg Tb24 (Metoprolol succinate) ..... Three tablets twice daily Eql Potassium Gluconate 595 Mg Tabs (Potassium gluconate) ..... Once daily Magnesium 250 Mg Tabs (Magnesium) ..... Once daily Shea Baca MD follow up: H is updated medication list for this problem includes: Diovan 160 Mg Tabs (Valsartan) ..... 1 tablet by mouth daily Glimepiride 2 Mg Tabs (Glimepiride) ..... 1 tablet by mouth twice daily Janumet 50-500 Mg Tabs (Sitagliptin-metformin hcl) ..... 1 tablet by mouth twice daily Aspirin 81 Mg Ec Tab (Aspirin) ..... Take one (1) tablet by mouth daily Humalog Soln (Insulin lispro (human) soln) ..... 15 units three times a day Levemir Flexpen Soln (Insulin detemir soln) ..... 40u twice a day Shea Baca MD follow up: H is updated medication list for this problem includes: Diovan 160 Mg Tabs (Valsartan) ..... 1 tablet by mouth daily Aspirin 81 Mg Ec Tab (Aspirin) ..... Take one (1) tablet by mouth daily Metoprolol Succinate 25 Mg Tb24 (Metoprolol succinate) ..... Three tablets twice daily Shea Baca MD follow up: H is updated medication list for this problem includes: Lipitor 40 Mg Tabs (Atorvastatin calcium) ..... 1 tablet by mouth daily Vascepa 1 Gm Caps (Icosapent ethyl) ..... 2 caps daily Gemfibrozil 600 Mg Tabs (Gemfibrozil) ..... Twice daily Shea Baca MD follow up: H is updated medication list for this problem includes: Aspirin 81 Mg Ec Tab (Aspirin) ..... Take one (1) tablet by mouth daily Nitrolingual 0.4 Mg/spray Soln (Nitroglycerin) ..... One spray prn 4.9gm. bottle Ranexa 500 Mg Tb12 (Ranolazine) ..... Two tab twice daily Metoprolol Succinate 25 Mg Tb24 (Metoprolol succinate) ..... Three tablets twice daily Effient 10 Mg Tabs (Prasugrel hcl) ..... One tablet daily Orders: E KG (CPT-81077) Shea Baca MD follow up: H is updated medication list for this problem includes: Lipitor 40 Mg Tabs (Atorvastatin calcium) ..... 1 tablet by mouth daily Aspirin 81 Mg Ec Tab (Aspirin) ..... Take one (1) tablet by mouth daily Nitrolingual 0.4 Mg/spray Soln (Nitroglycerin) ..... One spray prn 4.9gm. bottle Ranexa 500 Mg Tb12 (Ranolazine) ..... Two tab twice daily Vascepa 1 Gm Caps (Icosapent ethyl) ..... 2 caps daily Metoprolol Succinate 25 Mg Tb24 (Metoprolol succinate) ..... Three tablets twice daily Effient 10 Mg Tabs (Prasugrel hcl) ..... One tablet daily Gemfibrozil 600 Mg Tabs (Gemfibrozil) ..... Twice daily Shea Baca MD FU : H is updated medication list for this problem includes: Diovan 160 Mg Tabs (Valsartan) ..... 1 tablet by mouth daily Aspirin 81 Mg Tabs (Aspirin) ..... 1 tablet by mouth daily Metoprolol Succinate 25 Mg Tb24 (Metoprolol succinate) ..... Twice daily Shea Baca MD FU : T he following medications were removed from the medication list: Plavix 75 Mg Tabs (Clopidogrel bisulfate) ..... 1 tablet by mouth daily succinate) ..... Twice daily Effient 10 Mg Tabs (Prasugrel hcl) ..... One tablet daily Shea Baca MD Date Name Lipoprotein (a) LIPID PANEL Low Dose Lung CT Complete Echo Arterial Duplex Bi-L ower EX PROTHROMBIN TIME WIT H INR CBC (INCLUDES DIFF/P LT) BASIC METABOLIC PANE L W/EGFR Arterial Duplex RLE PROTHROMBIN TIME WIT H INR LIPID PANEL CBC (INCLUDES DIFF/P LT) BASIC METABOLIC PANE L W/EGFR Arterial Duplex Bi-L ower EX CT Chest with contra st PROTHROMBIN TIME WIT H INR LIPID PANEL CBC (INCLUDES DIFF/P LT) BASIC METABOLIC PANE L W/EGFR Renal Angio - [facility] Cardiac Cath - Left - GC Carotid Duplex Bilat eral Stress Regadenoson Complete Echo LIPID PANEL TSH, 3RD GENERATION W/REFLEX TO FT4 Complete Echo Complete Echo STR - Adenosine DLCO - 68802 FRC - 93996 FVC - 56108 T-4, FREE T3, TOTAL COMPREHENSIVE METABO LIC PANEL W/EGFR Sleep Study HEMOGLOBIN A1c THYROID PANEL WITH T SH, 3RD GENERATION LIPID PANEL Cardiac Cath - Left - GC T3, TOTAL TSH, 3RD GENERATION Mobile Cardiac Tele SED RATE BY MODIFIED JUAN PABLO T-4, FREE STR - Adenosine Carotid Duplex Bilat eral COMPREHENSIVE METABO LIC PANEL W/EGFR LIPID PANEL Complete Echo COMPREHENSIVE METABO LIC PANEL W/EGFR LIPID PANEL COMPREHENSIVE METABO LIC PANEL W/EGFR LIPID PANEL Cardiac Cath - Left - GC Complete Echo Cardiopulmonary Stre ss Test STR - Nuclear Cardiac Cath - Left - GC HISTORY OF PROCEDURES Procedure Date Procedure Name Provider Procedure Notes S tatus Counseling LDCT Shea Baca MD co mpleted EKG Shea Baca MD complet ed EKG Shea Baca MD complet ed EKG Shea Baca MD complet ed FVC / MVV with bronchodilator - 48394 Shea Baca MD completed FRC - 06601 Shea Baca MD comple jeanie SpO2 w/o 6min walk/titration Shea Baca MD completed DLCO - 12071 Shea Baca MD compl eted EKG Shea Baca MD complet ed Regadenoson, 4 units Shea Baca MD completed Cardiolite, 2 units Shea Baca MD completed SPECT Images Shea Baca MD compl eted Stress EKG Shea Baca MD complet ed EKG Shea Baca MD complet ed EKG Shea Baca MD complet ed EKG Shea Baca MD complet ed EKG Shea Baca MD complet ed SNOMED-CT: 466510606 788428 Current Medications Documented Shea Baca MD completed SNOMED-CT: 316263197 Smoking Cessation Counseling Shea Baca MD completed SNOMED-CT: 83325690 Physical Exam, Performed: Pulse Exam of Foot Shea Baca MD completed EKG Shea Baca MD complet ed SNOMED-CT: 061109365 480752 Current Medications Documented Shea Baca MD completed EKG Shea Baca MD complet ed SNOMED-CT: 662517337 011613 Current Medications Documented Shea Baca MD completed Stress EKG Gabe Dalton MD completed Regadenoson, 4 units Shea Baca MD completed Cardiolite, 2 units Shea Baca MD completed SPECT Images Britany Sheridan MD completed BLOOD COUNT HEMOGLOBIN Shea Baca MD completed FVC - 03976 Shea Baca MD comple jeanie FRC - 92999 Shea Baca MD comple jeanie DLCO - 25138 Shea Baca MD compl eted EKG Shea Baca MD complet ed SNOMED-CT: 325781936 642899 Current Medications Documented Shea Baca MD completed EKG Shea Baca MD complet ed EKG Shea Baca MD complet ed EKG Shea Baca MD complet ed EKG Shea Baca MD complet ed EKG Shea Baca MD complet ed EKG Shea Baca MD complet ed Lipid Strip Shea Baca MD comple jeanie EKG Shea Baca MD complet ed
[2024-06-27 11:56] VITALS: BP 134/88; PULSE 105; RESP 18; TEMP 37; O2SAT 99
[2024-06-27] MEDS: LACTATED RINGERS 1,000 ML 150 ML IV CONT (12:04)
--- NOTE | 2024-06-27 12:44 | P.PNAN_ITS ---
Anes - Initial Pre Proc Eval Procedure: Operation Date: 06/27/24 13:30 Proposed Procedures p Screening Colonoscopy - Aleksander Alves MD Date/Time: 06/27/24 12:44 Surgeon: Aleksander Alves MD Pre Op Diagnosis: Neoplasm screening Patient Data Age: 63 Gender: M Height: 1.8 m Weight: 100.4 kg Last Vital Signs Temp 98.6 F 06/27/24 11:56 Pulse 105 H 06/27/24 11:56 Resp 18 06/27/24 11:56 BP 134/88 06/27/24 11:56 Pulse Ox 99 06/27/24 11:56 O2 Del Method Room Air 06/27/24 11:56 Allergies Allergy/AdvReac Type Severity Reaction Status Date / Time Penicillins AdvReac Unknown Hives Verified 06/27/24 11:54 Home Medications ?Medication ?Instructions ?Recorded ?Confirmed ?Type nitroglycerin 0.4 mg sublingual 0.4 mg sublingual Q5M PRN chest 03/04/19 04/29/24 History tablet pain ranolazine 1,000 mg 1,000 mg PO Q12H 05/23/19 06/27/24 History tablet,extended release,12 hr (Ranexa) icosapent ethyl 1 gram capsule See Rx Instructions PO DAILY 08/14/19 06/27/24 History (Vascepa) omeprazole 40 mg capsule,delayed 40 mg PO DAILY #30 caps 12/18/22 06/27/24 Rx release insulin degludec 100 unit/mL (3 30 unit (0.3 mL) subcut DAILY #30 07/05/23 06/27/24 Rx mL) subcutaneous pen (Tresiba mL FlexTouch U-100 insulin) insulin lispro 100 unit/mL 10 unit (0.1 mL) subcut .pre meal 07/10/23 06/27/24 Rx subcutaneous pen #30 mL novolog See Rx Instructions .Route 08/20/23 04/29/24 Rx .COMPLEX #1 units rabeprazole 20 mg tablet,delayed 20 mg PO DAILY #90 tabs 08/20/23 04/29/24 Rx release (AcipHex) atorvastatin 80 mg tablet See Rx Instructions .Route 04/04/24 06/27/24 Rx .COMPLEX #100 tabs buspirone 5 mg tablet 5 mg PO BID #180 tabs 04/04/24 06/27/24 Rx clopidogrel 75 mg tablet See Rx Instructions .Route 04/04/24 06/27/24 Rx .COMPLEX #100 tabs metformin 1,000 mg tablet See Rx Instructions .Route 04/04/24 06/27/24 Rx .COMPLEX #200 tabs valsartan 160 See Rx Instructions .Route 04/04/24 06/27/24 Rx mg-hydrochlorothiazide 25 mg tablet .COMPLEX #100 tabs duloxetine 30 mg capsule,delayed 30 mg PO DAILY #90 caps 04/16/24 06/27/24 Rx release fenofibrate 54 mg tablet See Rx Instructions .Route 04/16/24 06/27/24 Rx .COMPLEX #90 tabs aspirin 81 mg tablet,delayed 81 mg PO DAILY 04/29/24 06/27/24 History release (Adult Low Dose Aspirin) insulin NPH isoph U-100 human 100 40 unit subcut BID 04/29/24 06/27/24 History unit/mL subcutaneous suspension (Humulin N NPH U-100 Insulin (isophane susp)) insulin regular human 100 unit/mL 45 unit subcut TIDWMEAL 04/29/24 06/27/24 History injection solution (Humulin R Regular U-100 Insulin) blood-glucose sensor (FreeStyle #2 ea 05/19/24 Rx Aicha 3 Plus Sensor device) alprazolam 1 mg tablet (Xanax) 1 mg PO BID PRN anxiety #60 tabs 06/24/24 06/27/24 Rx Patient hx anesthesia problems: none Family hx anesthesia problems: none Results Review: All pre-operative results and documents have been reviewed as part of the pre- operative evaluation. [facility] Past Medical History Medical History Amputation of toe of right foot Anxiety and depression ASHD (arteriosclerotic heart disease) Nieves's palsy Benign essential hypertension Blurry vision, bilateral Diabetic neuropathy Fatty liver Mixed hyperlipidemia PAD (peripheral artery disease) Polyp of colon Type 2 diabetes mellitus with diabetic polyneuropathy, with long-term current use of insulin Family History Family History Father Family history of lymphoma Sibling Family history of coronary artery disease Family history of heart disease in male family member before age 55 Mother Family history of malignant neoplasm of ovary Social History Social History Smoking packs per day: 0.25 Smoking cigarettes per day: 5.0 Years smoked: 45 Smoking pack-years: 11.25 Smoking status: Current every day smoker Tobacco type: cigarettes Second hand tobacco smoke exposure: No Alcohol intake: current Alcohol use details: once in a blue santos a beer Substance use: never Substance use type: does not use Lack of Transportation: No Lack of Food: Never True Current Housing: I Have Housing Concerned About Future Housing: No Difficulty Paying Gas/Electric Bills: No Difficulty Paying for Meds: YES Currently Unemployed: No Education: High School Diploma/GED Difficulty w/ Childcare or Family Care: No Living arrangements: with family Spiritual care concerns: No Anes - Eval Final PreProcedure Day of Procedure 06/27/24 12:44 Patient weight: obese Heart: regular rate and rhythm Lungs: clear to auscultation Airway: Mallampati scale class II Neurological: alert and oriented Last oral intake: >/= 8 hours ASA classification: III Emergent: no Anesthetic plan: proceed Anesthesia type and monitoring: general GIVS and standard monitoring Results Review: All pre-operative results and documents have been reviewed as part of the pre- operative evaluation. Informed Consent: The patient's anesthetic plan and its attendant risks and benefits were discussed with the patient/family/POA. Questions were solicited and answers provided to the satisfaction of the patient/family/POA.
--- NOTE | 2024-06-27 12:51 | PM.HPGS ---
History of Present Illness History of Present Illness Consent: Risks, benefits, and alternatives have been discussed and questions answered. Patient agrees to proceed with procedure. Chief complaint: Neoplasm screening Narrative: Carlos Rodriguez is a 63 year old male here for screening colonoscopy, last one 10 years ago Review of Systems Review of Systems: All systems reviewed & are unremarkable except as noted in HPI and below PMFSH Past Medical History Medical History (Updated 06/27/24 @ 12:52 by Aleksander Alves MD) Colon cancer screening Amputation of toe of right foot PAD (peripheral artery disease) Diabetic neuropathy Blurry vision, bilateral ASHD (arteriosclerotic heart disease) Anxiety and depression Nieves's palsy Benign essential hypertension Fatty liver Mixed hyperlipidemia Polyp of colon Type 2 diabetes mellitus with diabetic polyneuropathy, with long-term current use of insulin Family History Family History Father Family history of lymphoma Sibling Family history of coronary artery disease Family history of heart disease in male family member before age 55 Mother Family history of malignant neoplasm of ovary Social History Social History Smoking packs per day: 0.25 Smoking cigarettes per day: 5.0 Years smoked: 45 Smoking pack-years: 11.25 Smoking status: Current every day smoker Tobacco type: cigarettes Second hand tobacco smoke exposure: No Alcohol intake: current Alcohol use details: once in a blue santos a beer Substance use: never Substance use type: does not use Lack of Transportation: No Lack of Food: Never True Current Housing: I Have Housing Concerned About Future Housing: No Difficulty Paying Gas/Electric Bills: No Difficulty Paying for Meds: YES Currently Unemployed: No Education: High School Diploma/GED Difficulty w/ Childcare or Family Care: No Living arrangements: with family Spiritual care concerns: No Meds Home Medications and Allergies Home Medications ?Medication ?Instructions ?Recorded ?Confirmed ?Type nitroglycerin 0.4 mg sublingual 0.4 mg sublingual Q5M PRN chest 03/04/19 04/29/24 History tablet pain ranolazine 1,000 mg 1,000 mg PO Q12H 05/23/19 06/27/24 History tablet,extended release,12 hr (Ranexa) icosapent ethyl 1 gram capsule See Rx Instructions PO DAILY 05/28/20 04/11/25 History (Vascepa) omeprazole 40 mg capsule,delayed 40 mg PO DAILY #30 caps 12/18/22 06/27/24 Rx release insulin degludec 100 unit/mL (3 30 unit (0.3 mL) subcut DAILY #30 07/05/23 06/27/24 Rx mL) subcutaneous pen (Tresiba mL FlexTouch U-100 insulin) insulin lispro 100 unit/mL 10 unit (0.1 mL) subcut .pre meal 07/10/23 06/27/24 Rx subcutaneous pen #30 mL novolog See Rx Instructions .Route 08/20/23 04/29/24 Rx .COMPLEX #1 units rabeprazole 20 mg tablet,delayed 20 mg PO DAILY #90 tabs 08/20/23 04/29/24 Rx release (AcipHex) atorvastatin 80 mg tablet See Rx Instructions .Route 04/04/24 06/27/24 Rx .COMPLEX #100 tabs buspirone 5 mg tablet 5 mg PO BID #180 tabs 04/04/24 06/27/24 Rx clopidogrel 75 mg tablet See Rx Instructions .Route 04/04/24 06/27/24 Rx .COMPLEX #100 tabs metformin 1,000 mg tablet See Rx Instructions .Route 04/04/24 06/27/24 Rx .COMPLEX #200 tabs valsartan 160 See Rx Instructions .Route 04/04/24 06/27/24 Rx mg-hydrochlorothiazide 25 mg tablet .COMPLEX #100 tabs duloxetine 30 mg capsule,delayed 30 mg PO DAILY #90 caps 04/16/24 06/27/24 Rx release fenofibrate 54 mg tablet See Rx Instructions .Route 04/16/24 06/27/24 Rx .COMPLEX #90 tabs aspirin 81 mg tablet,delayed 81 mg PO DAILY 04/29/24 06/27/24 History release (Adult Low Dose Aspirin) insulin NPH isoph U-100 human 100 40 unit subcut BID 04/29/24 06/27/24 History unit/mL subcutaneous suspension (Humulin N NPH U-100 Insulin (isophane susp)) insulin regular human 100 unit/mL 45 unit subcut TIDWMEAL 04/29/24 06/27/24 History injection solution (Humulin R Regular U-100 Insulin) blood-glucose sensor (FreeStyle #2 ea 05/19/24 Rx Aicha 3 Plus Sensor device) alprazolam 1 mg tablet (Xanax) 1 mg PO BID PRN anxiety #60 tabs 06/24/24 06/27/24 Rx Allergies Allergy/AdvReac Type Severity Reaction Status Date / Time Penicillins AdvReac Unknown Hives Verified 06/27/24 11:54 Vital Signs Vital Signs - 24 hr 06/27/24 11:56 Temperature 98.6 F Pulse Rate 105 H Respiratory Rate 18 Blood Pressure 134/88 Pulse Oximetry 99 Oxygen Delivery Room Air Exam Const: General: comfortable and no acute distress HENMT: Face/Nose/Sinus: Normal nares present Eyes: General: appearance normal, both eyes and all related structures Neck: Neck: no JVD Resp: Auscultation: clear to auscultation bilaterally Cardio: Rate: regular rate Rhythm: regular rhythm GI: Inspection: non-distended GI Palp: Yes Soft to palpation Skin: General skin exam: normal color Neuro: General: gait normal Speech: normal speech Extrem: General: normal to inspection Psych: Mental Status: mental status grossly normal Assessment and Plan Assessment and plan (1) Colon cancer screening: Code(s): Z12.11 - Encounter for screening for malignant neoplasm of colon Status: Acute Assessment and Plan: colonoscopy
[2024-06-27 13:07] VITALS: BP 110/68; PULSE 91; RESP 18; O2SAT 99
[2024-06-27 13:17] VITALS: BP 106/63; PULSE 92; RESP 18; O2SAT 98
[2024-06-27 13:27] VITALS: BP 108/64; PULSE 90; RESP 18; O2SAT 98
== END 2024-06-27 13:41 | disposition home or self-care (01) ==
PROVIDERS: PCP Nurse Practitioner Family; Referring Provider Nurse Practitioner Family; Visit Provider Internal Medicine Gastroenterology
PROC: 0DJD8ZZ Inspection of Lower Intestinal Tract, Via Natural or Artificial Opening Endoscopic (ICD-10-PCS; CPT 45378; principal; 2024-06-27 13:30)
DX: Z12.11 Encounter for screening for malignant neoplasm of colon (principal); D12.4 Benign neoplasm of descending colon; K64.8 Other hemorrhoids; K57.30 Diverticulosis of large intestine without perforation or abscess without bleeding; I10 Essential (primary) hypertension; E78.2 Mixed hyperlipidemia; E11.42 Type 2 diabetes mellitus with diabetic polyneuropathy; I73.9 Peripheral vascular disease, unspecified; I25.10 Atherosclerotic heart disease of native coronary artery without angina pectoris; F17.210 Nicotine dependence, cigarettes, uncomplicated; F41.8 Other specified anxiety disorders; E66.9 Obesity, unspecified; Z68.30 Body mass index [BMI] 30.0-30.9, adult; Z79.4 Long term (current) use of insulin; Z79.02 Long term (current) use of antithrombotics/antiplatelets; Z79.84 Long term (current) use of oral hypoglycemic drugs; Z79.82 Long term (current) use of aspirin; Z98.890 Other specified postprocedural states; Z89.421 Acquired absence of other right toe(s); Z80.41 Family history of malignant neoplasm of ovary; Z80.7 Family history of other malignant neoplasms of lymphoid, hematopoietic and related tissues; Z82.49 Family history of ischemic heart disease and other diseases of the circulatory system
CPT/HCPCS: 45380; 88305; J2704; J7120